=== PATIENT | female | born 1965 | race Caucasian/White ===

== ENCOUNTER 2023-04-04 03:40 | Inpatient (IN) | payer OTHER, SELFPAY ==
[2023-04-04] VITALS (18 sets, daily range): BP systolic 115–157; BP diastolic 71–90; BMI 30.5; BMI 28.7
[2023-04-04 01:20] LABS: % Basophils 0.7 % (0-2); % Eosinophils 2.8 % (0-6); % Immature Granulocytes 0.5 % (0-0.5); % Lymphocytes 23.2 % (20.5-51.1); % Monocytes 6.1 % (1.7-9.3); % Neutrophils 66.7 % (42.2-75.2); Absolute Eosinophils 0.1 10^3/uL (0-0.7); Absolute Monocytes 0.3 10^3/uL (0.1-0.6); Absolute Neutrophils 2.8 10^3/uL (1.4-6.5); Mean Corp Hgb Conc. 25.4 g/dL (33.0-37.0); Mean Corpuscular Hgb 13.9 pg (27.0-31.0); Nucleated Red Blood Cells % 0 %; Platelet Count 211 10^3/uL (130-400); Red Cell Dist. Width 21.5 % (11.5-14.5); White Blood Cell Count 4.3 10^3/uL (4.8-10.8)
[2023-04-04 01:22] LABS: Hematocrit 20.9 % (37.0-47.0); Hemoglobin 5.3 g/dL (12.0-16.0)
[2023-04-04 01:33] LABS: ALT (SGPT) 16 U/L (0-35); AST (SGOT) 44 U/L (14-36); Albumin 3.9 g/dl (3.5-5.0); Alkaline Phosphatase 60 U/L (38-126); Blood Urea Nitrogen 15 mg/dl (7-17); Calcium 9.2 mg/dl (8.4-10.2); Carbon Dioxide 24 mmol/L (22-30); Chloride 105 mmol/L (98-107); Glucose 92 mg/dl (70-99); Potassium 3.7 mmol/L (3.5-5.1); Sodium 139 mmol/L (135-145); Total Protein 5.9 g/dl (6.3-8.2); eGFR > 60.00
--- NOTE | 2023-04-04 01:34 | ED.GENMED ---
History of Present Illness
General
Chief Complaint: Abnormal Lab Value
Source: patient
Exam Limitations: none
Time Seen by Provider: 04/04/23 01:03
Travel History
Have you had any contact with someone who has COVID-19?: No
Do you have any symptoms of coronavirus? Fever > 100 degrees, chills, cough, shortness of breath, sore throat, loss of taste or smell, muscle aches, or headache?: No
History of Present Illness
History of Present Illness:
This is a 57 year old female that comes in with c/o abnormal labs. States that she had some routine blood work done today for her PCP. States that she was called tonight and told to come to the ER as her Hgb was 5.1. States that she hasn't been
feeling well lately. States that she has been dizzy for a year. States that she is SOB occasionally and that she has had some diarrhea with dark stool for a week. States that she was taking Pepto but none recently. States that she also has a
headache. Denies any fever, chills, chest pain, abd pain, nausea, vomiting, dizziness, urinary burning.
Past History
Past History
ED Past Medical History: GERD, HTN, Hypercholesterolemia, Hypothyroidism and Other (Hiatal hernia, )
ED Past Surgical History: , Orthopedic (Carpal tunnel) and Other (Lower body lift on 12/22/18, Breast augmentation. )
Social History
Tobacco: Smoker (Occasional cigar)
Alcohol: None
Drug: Marijuana
Personal:
Living: with family
Review of Systems
Review of Systems
All Other Systems: ROS reviewed and negative except as documented in HPI and ROS
Constitutional: Reports no symptoms; Denies fever or chills
EENT: Reports no symptoms
Respiratory: Reports trouble breathing (occasional); Denies cough
Cardiac: Reports no symptoms; Denies chest pain
ABD/GI: Reports diarrhea and other (Dark stool this past week); Denies abdominal pain, nausea or vomiting
: Reports no symptoms; Denies dysuria, frequency or urgency
Musculoskeletal: Reports no symptoms
Skin: Reports no symptoms
Neurological: Reports dizzy (on and off for over a year) and headache
Psychiatric: Reports no symptoms
Phy Exam
General Physical Exam
General Presentation: well appearing and no apparent distress
General age: appears stated age
General Skin: warm and dry
General Habitus: normal
General Mental: alert
General Hydration: appears well hydrated
ENT Exam
ENT Exam: TM's normal, pharynx normal and neck supple
Eye Exam
Eye Exam: EOMI
Cardiovascular Exam
Cardiovascular Exam: regular rate/rhythm, no edema, no murmur and normal peripheral pulses
Pulmonary Exam
Pulmonary Exam: lungs clear, no respiratory distress, no rales, chest non tender, no crackles, no rhonchi, no wheezing and no cough
Gastrointestinal Exam
Gastrointestinal Exam: normal bowel sounds, non tender, soft, no organomegaly, no pulsatile mass, non distended and other (Rectal exam Negative for stool in the rectal vault, Hem negative. )
Musculoskeletal Exam
Musculoskeletal Exam: full ROM and no edema
Skin Exam
Skin Exam: normal color, warm/dry, no rash and no petechia
Psychiatric Exam
Psychiatric Exam: normal mood/affect
Course
Orders/Labs/Results
Orders:
Orders
04/04/23 01:08
Type+Screen Urgent
Complete Blood Count/With Diff Urgent
Comprehensive Metabolic Panel Urgent
Abnormal Lab Results
04/04/23
01:08
WBC 4.3 L 10^3/uL
(4.8-10.8)
RBC 3.80 L 10^6/uL
(4.20-5.40)
Hgb 5.3 L* g/dL
(12.0-16.0)
Hct 20.9 L* %
(37.0-47.0)
MCV 55.0 L fL
(81.0-99.0)
MCH 13.9 L pg
(27.0-31.0)
MCHC 25.4 L g/dL
(33.0-37.0)
RDW 21.5 H %
(11.5-14.5)
AST 44 H U/L
(14-36)
Total Protein 5.9 L g/dl
(6.3-8.2)
04/04/23 01:08
04/04/23 01:08
WBC very slightly low. H/H very low Anemia, ASt mildly elevated. Total protein low
Vital Signs
Initial and Last Documented VS:
Initial Vital Signs
Temp Pulse Resp BP Pulse Ox
98.4 F 104 18 157/90 100
04/04/23 00:08 04/04/23 00:08 04/04/23 00:08 04/04/23 00:08 04/04/23 00:08
Last Documented Vital Signs
Temp Pulse Resp BP Pulse Ox
98.4 F 96 22 128/87 100
04/04/23 00:08 04/04/23 01:17 04/04/23 01:17 04/04/23 01:17 04/04/23 00:08
MDM/Problems Addressed
Differential Diagnosis Includes:
Anemia, GI bleeding,
MDM/Problems Addressed:
This is a 57 year old female that comes in with c/o abnormal labs. Staes that she has routine blood work done today for her PCP and she was called aura and told to come to the ER. States that her Hgb was 5.1. States that she has had some SOB and
over the past year dizziness.
Will get labs.
Back into see patient. Explained that her Hgb is very low and she will need blood. Blood constent signed and PRBC's 2 units ordered. Hospitalist notified about admission.
Chronic conditions affecting care:
NA
Acute Exacerbation and/or Progression of Chronic Illness:
NA
*Pulse Oximetry
Patient hypoxic: no
*EKG
Interpreted by ED Provider?: NA
Rate: EKG- N/A
*Kerfer Machine Operator Interpretation
Rate: normal
Heart Rate: 96
Rhythm: sinus
*Critical Care Note
Total Time (30-74mins, 75-104mins- exclusive of procedures): Not Applicable
ED Attending Note
-
Portions of this chart may have been created with voice recognition software.� Occasional wrong word or��sound alike� substitutions may have occurred due to the inherent limitations of voice recognition software.
Discharge Plan
Departure
Prescriptions:
No Action
valacyclovir 500 MG tablet
500 mg PO HS
spironolactone 25 MG tablet
25 mg PO HS
simvastatin 5 MG tablet
5 mg PO HS
levothyroxine 50 MCG tablet
50 mcg PO DAILY
ramipril 2.5 MG capsule
2.5 mg PO HS
bupropion HCl 150 MG tablet extended release 24 hr
450 mg PO DAILY
temazepam 15 MG capsule
30 mg PO HS
celecoxib 200 MG capsule
200 mg PO BID 0RF
gabapentin 300 MG capsule
300 mg PO TID 0RF
oxycodone 5 MG tablet
5 mg PO Q4HPRN PRN (Reason: breakthrough mod-severe pain) 0RF
ascorbic acid (vitamin C) [Vitamin C] 500 MG tablet
1,000 mg PO BID Qty: 56 0RF
Rx Instructions:
Take 1,000 mg twice a day for 14 days
albuterol sulfate 1 PUFF HFA aerosol inhaler
2 puff inhalation R Q4HPRN PRN (Reason: shortness of breath) Qty: 1 0RF
zinc sulfate 220 MG capsule
220 mg PO DAILY Qty: 14 0RF
Rx Instructions:
Take 220 mg daily for 14 days
cholecalciferol (vitamin D3) 1,000 UNITS tablet
2,000 units PO DAILY Qty: 28 0RF
Rx Instructions:
Take 2,000 units daily for 14 days
Referrals:
Bryn Zayas DO [Family Provider] -
Interventions
Interventions:
*Neglect/Abuse Screening Last Done: 04/04/23 01:01
ED- Fall Risk Assessment Last Done: 04/04/23 01:20
*ED COVID-19 Vaccine History Last Done: 04/04/23 01:13
[2023-04-04 02:32] LABS: Anisocytosis 2+; Hypersegmented Neutrophil 1+; Normal RBC Morphology No; Ovalocytes 2+; Poikilocytosis 2+; Target Cells 2+
[2023-04-04 02:33] LABS: Acanthocytes 1+; Hypochromasia 3+; Tear Drop Red Blood Cells 1+
[2023-04-04 02:34] LABS: Basophilic Stippling Occasional; Polychromasia Occasional
[2023-04-04 02:38] LABS: Rouleaux Occasional
[2023-04-04 02:41] LABS: Microcytosis 2+
--- NOTE | 2023-04-04 02:46 | HPS.HSE ---
Addendum entered and electronically signed by Coral Carlin MD 04/04/23 03:58:
patient states she is likely due for colonoscopy. she also reports intermittent esophageal spasm when eating.
Original Note:
Family Physician
-
Family Physician: Bryn Zayas
Chief Complaint
-
abnormal blood work
History of Present Illness
Ms. Jordana Kramer is a 57 yo woman with hx GERD, HTN, HLD, hypothyroidism who had outpatient blood work done with finding of severe anemia and sent to the ER.
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 She is on human growth hormone twice a day. She was on testosterone, stopped after last tournament in October. One year ago she needed to undergo phlebotomy because hemoglobin was too high. Patient was
also on fat metabolizers and other supplements. She reports feeling dizzy and lightheaded over past year with worsening over past 6 months. She saw PCP for routine labs today. She reports black stools over past 2 weeks, has also started taking
pepto bismol around this time. Denies increased frequency.
No fevers/chills. No nausea/vomiting. No abdominal pain. + shortness of breath with exertion. No chest pain.
Medical History
Past Medical History
Past Medical History: Reports Other ( GERD, HTN, HLD, hypothyroidism)
Past Surgical History: Reports Other ( , Orthopedic (Carpal tunnel) and Other (Lower body lift on 12/22/18, Breast augmentation. ))
Social History
Tobacco: Smoker (cigar)
Alcohol: None
Family History
Family History: Not pertinent
Allergies / Home Medications
Allergies reflects when Allergies were last updated in [facility].
Home Medications with original date entered in [facility]
Allergy/Medication List:
Allergies
Allergy/AdvReac Type Severity Reaction Status Date / Time
Cephalosporins Allergy Pharmacy Verified 04/04/23 00:07
to Review
penicillin V Allergy throat Verified 04/04/23 00:07
swells
Penicillins Allergy throat Verified 04/04/23 00:07
swells
rabbit dander Allergy throat Verified 04/04/23 00:07
swells
Home Medications
levothyroxine 50 mcg tablet 50 mcg PO DAILY 12/05/18
ramipril 2.5 mg capsule 2.5 mg PO HS 12/05/18
simvastatin 5 mg tablet 5 mg PO HS 12/05/18
spironolactone 25 mg tablet 25 mg PO HS 12/05/18
temazepam 15 mg capsule 30 mg PO HS 12/05/18
valacyclovir 500 mg tablet 500 mg PO HS 12/05/18
gabapentin 300 mg capsule 300 mg PO TID 12/22/18
oxycodone 5 mg tablet 5 mg PO Q4HPRN PRN breakthrough mod-severe pain 12/22/18
albuterol sulfate 90 mcg/actuation aerosol inhaler 2 puff inhalation R Q4HPRN PRN shortness of breath ##1 12/01/20
ascorbic acid (vitamin C) 500 mg tablet (Vitamin C) 1,000 mg PO BID #56 tabs 12/01/20
cholecalciferol (vitamin D3) 25 mcg (1,000 unit) tablet 2,000 units PO DAILY #28 tabs 12/01/20
zinc sulfate 50 mg zinc (220 mg) capsule 220 mg PO DAILY #14 caps 12/01/20
*awaiting med rec
Review of Systems
-
History Source: Patient
A 12 point ROS was completed and negative except as noted: Yes
Physical Exam
Vital Signs
Vital Signs
Temp Pulse Resp BP Pulse Ox
98.4 F 88 13 132/83 96
04/04/23 02:25 04/04/23 02:30 04/04/23 02:30 04/04/23 02:25 04/04/23 02:30
Physical Exam
General: Conversant and Other (no apparent distress, increased muscle mass )
HEENT: PERRLA
Respiratory: Clear; No Wheezes
Cardiac: S1/S2 and Regular Rhythm
GI: Soft and Non Tender
Musculoskeletal: No Edema
Skin: Warm and Dry; No Rash
Neuro: AO x 3
Psych: Calm
Laboratory Results
-
04/04/23 01:08
04/04/23 01:08
Laboratory Results
Total Bilirubin 1.0 mg/dl (0.2-1.3) 04/04/23 01:08
AST 44 U/L (14-36) H 04/04/23 01:08
ALT 16 U/L (0-35) 04/04/23 01:08
Alkaline Phosphatase 60 U/L (38-126) 04/04/23 01:08
Data Reviewed
-
Diagnostic Radiology: Report Reviewed by me
Lab Data: Labs Reviewed by me
Impression/Plan
-
Ms. Jordana Kramer is a 57 yo woman with hx GERD, HTN, HLD, hypothyroidism who had outpatient blood work done with finding of severe anemia and sent to the ER.
Triage VS: T 98.4, P 104, RR 18, BP 157/90, SpO2 100%
LABS: WBC 4.3, Hg 5.3, Hct 20.9, PLT 211, MCV 55; differential with multiple abnormalities including + rouleaux, tear drop cells, basophilic stippling
Na 139, K+ 3.7, Cl 105, BUN 15, Cr 0.7, Glucose 92, T. Bili 1.0, AST 44, ALT 16, Alk Phos 60
ordered for 2 units PRBC
Symptomatic Anemia
severe microcytic anemia with abnl diff
-admit to telemetry
-ordered for 2 units RBC in ER; repeat CBC following
-trend Hg
-consult Hematology
-F/U iron studies (if e/o TAZ also consult GI)
-hold supplements (awaiting med rec)
GERD
HTN
HLD
Hypothyroidism
awaiting med rec to continue home med list
DVT PPx SCD
FULL CODE
[2023-04-04 03:37] LABS: Iron < 20 ug/dl (37-170)
[2023-04-04 03:45] LABS: Total Iron Binding Capacity 469 ug/dl (265-497)
[2023-04-04 04:17] LABS: Ferritin 3.8 ng/ml (11.1-264.0)
[2023-04-04 04:31] LABS: Vitamin B12 468 pg/ml (239-931)
--- NOTE | 2023-04-04 06:06 | PTCARENOTE ---
Pt received from ER aaox3 able to make her needs known,pleasant,cooperative. Denies pain. Pt received from ER with 1st unit of blood running & 2nd unit is ordered. No other complaints noted. Plan of care continued.
[2023-04-04] MEDS: LYRICA 150 MG PO ×2 (08:40→20:52)
[2023-04-04] MEDS: VITAMIN C 1000 MG PO (08:40)
[2023-04-04] MEDS: VITAMIN D3 (cholecalciferol) 50 MCG PO (08:40)
--- NOTE | 2023-04-04 09:20 | CON.ONC ---
Impression
Impression
Severe symptomatic iron deficiency anemia
Plan
Plan
Patient was scheduled and has received 2 units of packed RBCs. She is currently receiving transfusions at this time. Await follow-up CBC.
She requires a GI consultation for upper and lower endoscopy to evaluate the source of blood loss.
In addition to PRBC x 2 units which has been ordered, I will arrange for IV iron.
We will standby to see if there is anything oncologic that is discovered as part of the GI evaluation otherwise both transfusion and IV iron therapy should effectively improve her iron and hemoglobin relatively quickly.
Thank you for this consult.
Patient History
History of Present Illness
Hematology consult for anemia from Dr. Carlin
CC: Fatigue and slight loss of stamina
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 She has history of polycythemia (suspect secondary to significant hormone supplementation such as testosterone) and
actually underwent some phlebotomies through [facility] coordinated through her PCP Dr. Bryn Zayas. She also takes human growth ointment twice a day. She had complaints of dizziness and lightheadedness over the past year that has become
progressive over the past 6 months. She has a new bodybuilding coach tour driver who recommended blood work that was done to her PCP. She has noted intermittent dark stools but attributes it to Pepto-Bismol that she is taking for upper GI symptoms such as
reflux and esophageal spasms. She has never had a colonoscopy. She does have dyspnea with exertion. No other obvious sites of bleeding. Patient has not had menses for approximately 7 years.
Past-Medical/Surgical History
PMH: GERD, HTN, HLD, hypothyroidism
PSH: , Orthopedic (Carpal tunnel) and Lower body lift on 12/22/18, Breast augmentation.
Social History
Tobacco: Smoker (cigar)
Alcohol: None
Family History
Family History: Not pertinent
Patient Medication
Medication Instructions Recorded Confirmed Last Taken Type
valacyclovir 500 mg tablet 500 mg PO HS 12/05/18 04/04/23 12/21/18 17:30 History
albuterol sulfate 90 mcg/actuation 2 puff inhalation R Q4HPRN PRN 12/01/20 04/04/23 Unknown Rx
aerosol inhaler shortness of breath ##1
ascorbic acid (vitamin C) 500 mg 1,000 mg PO BID #56 tabs 12/01/20 04/04/23 Unknown Rx
tablet (Vitamin C)
cholecalciferol (vitamin D3) 25 2,000 units PO DAILY #28 tabs 12/01/20 04/04/23 Unknown Rx
mcg (1,000 unit) tablet
dextroamphetamine-amphetamine 10 10 mg PO BID 04/04/23 04/04/23 Unknown History
mg tablet
gabapentin 300 mg capsule 150 mg PO BID 04/04/23 Unknown History
Active Medications
Generic Name Dose Route Start Last Admin
Trade Name Freq PRN Reason Stop Dose Admin
Acetaminophen 650 mg 04/04/23 04:57
Acetaminophen 325 Mg Tablet PO 05/02/23 04:56
Q4HPRN PRN
mild pain/ULRICH/temp> 100.4F
Ascorbic Acid 1,000 mg 04/04/23 08:00 04/04/23 08:40
Ascorbic Acid 500 Mg Tablet PO 04/17/23 20:01 1,000 mg
BID CHEMO Administration
Cholecalciferol 50 mcg 04/04/23 08:00 04/04/23 08:40
Cholecalciferol (Vitamin D3) 25 Mcg Tablet (1,000 Units) PO 04/17/23 08:01 50 mcg
DAILY CHEMO Administration
Ferric Sodium Gluconate 110 mls @ 110 mls/hr 04/04/23 14:00
Complex 125 mg/ Sodium IV 04/08/23 14:59
Chloride DAILY@1400 CHEMO
Pregabalin 150 mg 04/04/23 08:00 04/04/23 08:40
Pregabalin 50 Mg Capsule PO 05/02/23 07:59 150 mg
BID CHEMO Administration
Sodium Chloride 0 flush 04/04/23 06:00
Sodium Chloride 0.9% (Flush) Syringe IV 05/02/23 05:59
PER PROTOCOL CHEMO
Valacyclovir HCl 500 mg 04/04/23 22:00
Valacyclovir Hcl 500 Mg Tablet PO 04/14/23 21:59
HS CHEMO
Physical Exam
-
General: Well Developed, Well Nourished and No Apparent Distress
HEENT: Negative Jaundice
Cardiology: Normal Sinus Rhythm, S1 and S2
Pulmonary: Clear
GI: Soft
Musculoskeletal: No Edema, Clubbing and Cyanosis
Neurology: Non Focal
Labs
Lab Results
WBC 4.3 10^3/uL (4.8-10.8) L 04/04/23 01:08
RBC 3.80 10^6/uL (4.20-5.40) L 04/04/23 01:08
Hgb 5.3 g/dL (12.0-16.0) L* 04/04/23 01:08
Hct 20.9 % (37.0-47.0) L* 04/04/23 01:08
MCV 55.0 fL (81.0-99.0) L 04/04/23 01:08
MCH 13.9 pg (27.0-31.0) L 04/04/23 01:08
MCHC 25.4 g/dL (33.0-37.0) L 04/04/23 01:08
RDW 21.5 % (11.5-14.5) H 04/04/23 01:08
Plt Count 211 10^3/uL (130-400) 04/04/23 01:08
MPV Not Reportable 04/04/23 01:08
Abs Immat Gran (auto) 0.0 10^3/uL (0-0.05) 04/04/23 01:08
Absolute Neuts (auto) 2.8 10^3/uL (1.4-6.5) 04/04/23 01:08
Absolute Lymphs (auto) 1.0 10^3/uL (1.2-3.4) L 04/04/23 01:08
Absolute Monos (auto) 0.3 10^3/uL (0.1-0.6) 04/04/23 01:08
Absolute Eos (auto) 0.1 10^3/uL (0-0.7) 04/04/23 01:08
Absolute Basos (auto) 0.0 10^3/uL (0-0.2) 04/04/23 01:08
Immature Gran % 0.5 % (0-0.5) 04/04/23 01:08
Neutrophils % 66.7 % (42.2-75.2) 04/04/23 01:08
Lymphocytes % 23.2 % (20.5-51.1) 04/04/23 01:08
Monocytes % 6.1 % (1.7-9.3) 04/04/23 01:08
Eosinophils % 2.8 % (0-6) 04/04/23 01:08
Basophils % 0.7 % (0-2) 04/04/23 01:08
Creatinine 0.7 mg/dL (0.6-1.0) 04/04/23 01:08
Vital Signs
Vital Signs
Temp Pulse Resp BP Pulse Ox
98.2 F 76 16 115/78 98
04/04/23 07:00 04/04/23 07:00 04/04/23 07:00 04/04/23 07:00 04/04/23 07:00
--- NOTE | 2023-04-04 10:14 | CM ---
Met with patient at bedside; initial assessment completed
Pharmacy verified: [facility], [address], [place]
Patient reports that she lives in [facility] with daughter and daughter's boyfriend; 2 steps to enter; 14 steps between floors; powder room on the 1st floor; 2nd floor bath has a stall shower with seat
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
DME: none
SNF/Rehab/Home Care utilization history: none
Transportation; Significant other, Jeremy, will provide ride home
Plan: discharge to home when medically stable; no needs anticipated
[2023-04-04 11:26] LABS: Hematocrit 27.8 % (37.0-47.0); Mean Corp Hgb Conc. 27.7 g/dL (33.0-37.0); Mean Corpuscular Hgb 16.4 pg (27.0-31.0); Mean Corpuscular Volume 59.3 fL (81.0-99.0); Red Blood Cell Count 4.69 10^6/uL (4.20-5.40); Red Cell Dist. Width 26.7 % (11.5-14.5); White Blood Cell Count 4.3 10^3/uL (4.8-10.8)
[2023-04-04 11:35] LABS: Hemoglobin 7.7 g/dL (12.0-16.0)
[2023-04-04 12:05] LABS: Blood Urea Nitrogen 10 mg/dl (7-17); Calcium 8.8 mg/dl (8.4-10.2); Carbon Dioxide 28 mmol/L (22-30); Chloride 106 mmol/L (98-107); Estimated Creatinine Clearance 86 ml/min; Glucose 72 mg/dl (70-99); Potassium 3.8 mmol/L (3.5-5.1); Sodium 136 mmol/L (135-145); eGFR > 60.00
[2023-04-04 12:24] LABS: Platelet Count 188 10^3/uL (130-400)
[2023-04-04 12:35] LABS: TSH 2.31 uIU/ml (0.47-4.68)
--- NOTE | 2023-04-04 14:28 | W.PN.HOSP.TC ---
Today's Communication/Plan
-
IV iron
Endo +/- C-Scope as per GI
Monitor HgB
Assessment / Plan
Assessment / Plan
Physical Exam
General: Conversant and Other (no apparent distress, increased muscle mass )
HEENT: PERRLA
Respiratory: Clear; No Wheezes
Cardiac: S1/S2 and Regular Rhythm
GI: Soft and Non Tender
Musculoskeletal: No Edema
Skin: Warm and Dry; No Rash
Neuro: AO x 3
Psych: Calm
Symptomatic Anemia
severe microcytic anemia with abnl diff
Iron deficiency anemia
-admit to telemetry
-ordered for 2 units RBC in ER
-trend Hgb; transfuse as necessary to ensure hemoglobin goal greater than 7
� IV iron
� GI consulted for endoscopy +/- colonoscopy
GERD
HTN
HLD
Hypothyroidism
DVT PPx SCD
FULL CODE
Anticipated Discharge: > 48 hours
Subjective/Interval History
-
Date of Service: April 04, 2023
no acute events
Objective Data
-
Labs:
Laboratory Results
04/04/23
11:17
WBC 4.3 L
Hgb 7.7 L D
Hct 27.8 L
Plt Count 188
Sodium 136
Potassium 3.8
Chloride 106
Carbon Dioxide 28
BUN 10
Creatinine 0.7
Glucose 72
Calcium 8.8
Vital Signs:
Vital Signs
Temp Pulse Resp BP Pulse Ox
98.5 F 77 18 122/76 97
04/04/23 11:17 04/04/23 11:17 04/04/23 11:17 04/04/23 11:17 04/04/23 11:17
I&O
04/03/23 04/04/23 04/05/23
06:59 06:59 06:59
Intake Total 730 / 730 250 / 250
Balance 730 / 730 250 / 250
Review of Systems
-
History Source: Patient
All other systems: Not reviewed unless documented
Data Reviewed
-
Labs: Labs Reviewed by me
[2023-04-04] MEDS: FERRLECIT 110 MG IV (14:33)
--- NOTE | 2023-04-04 15:35 | CON.GI ---
Consultation
-
Date/Time Consultation Requested: 04/04/2022
Date/Time Consultation Performed: 04/04/2022
Performing Provider: Nikhil Reeder
Reason for Consultation: anemia
Medical History
Chief Complaint / HPI
Chief Complaint: anemia
History of Present Illness:
The patient is a 57 year old female with h/o GERD, HTN, HLD, hypothyroidism who was sent in from outpatient blood work which showed severe anemia. Hgb here was 5.3.
Impression / Rec:
1. TAZ - etiology is unclear. Pt reported melena for few weeks, but states she had been taking pepto-bismol during this period. She also has NSAID use, ibuprofen few times a week. Never had EGD/colon. MAIDA in ER showed minimal stool in rectal
vault, heme -ve. Will plan for EGD tomorrow, NPO midnight. Colonoscopy can be done as OP as little suspicion she's actually having GI blood loss. Will follow.
Past Medical History
Past Medical History: GERD, HTN, Hypothyroidism and Other
Past Surgical History: and Other
Social History
Tobacco: Other
Alcohol: None
Family History
Family History: Reviewed & Not Pertinent
Allergies / Home Medications
Allergy/AdvReac Type Severity Reaction Status Date / Time
Cephalosporins Allergy Pharmacy Verified 04/04/23 00:07
to Review
penicillin V Allergy throat Verified 04/04/23 00:07
swells
Penicillins Allergy throat Verified 04/04/23 00:07
swells
rabbit dander Allergy throat Verified 04/04/23 00:07
swells
Medication Instructions Recorded
valacyclovir 500 mg tablet 500 mg PO HS 12/05/18
albuterol sulfate 90 mcg/actuation 2 puff inhalation R Q4HPRN PRN 12/01/20
aerosol inhaler shortness of breath ##1
ascorbic acid (vitamin C) 500 mg 1,000 mg PO BID #56 tabs 12/01/20
tablet (Vitamin C)
cholecalciferol (vitamin D3) 25 2,000 units PO DAILY #28 tabs 12/01/20
mcg (1,000 unit) tablet
dextroamphetamine-amphetamine 10 10 mg PO BID 04/04/23
mg tablet
gabapentin 300 mg capsule 150 mg PO BID 04/04/23
Review of Systems
Vital Signs
Temp Pulse Resp BP Pulse Ox
97.7 F 75 18 139/85 100
04/04/23 15:24 04/04/23 15:24 04/04/23 15:24 04/04/23 15:24 04/04/23 15:24
Physical Exam
Exam
General: Well Developed, Well Nourished and No Apparent Distress
HEENT: Normocephalic and Anicteric
Respiratory: Clear
Cardiac: S1/S2
GI: Soft, Non Tender, Non Distended and Normal Bowel Sounds
Results
WBC 4.3 10^3/uL (4.8-10.8) L 04/04/23 11:17
Hgb 7.7 g/dL (12.0-16.0) L D 04/04/23 11:17
Hct 27.8 % (37.0-47.0) L 04/04/23 11:17
MCV 59.3 fL (81.0-99.0) L 04/04/23 11:17
Plt Count 188 10^3/uL (130-400) 04/04/23 11:17
Absolute Neuts (auto) 2.8 10^3/uL (1.4-6.5) 04/04/23 01:08
Sodium 136 mmol/L (135-145) 04/04/23 11:17
Potassium 3.8 mmol/L (3.5-5.1) 04/04/23 11:17
Chloride 106 mmol/L (98-107) 04/04/23 11:17
Carbon Dioxide 28 mmol/L (22-30) 04/04/23 11:17
BUN 10 mg/dl (7-17) 04/04/23 11:17
Creatinine 0.7 mg/dL (0.6-1.0) 04/04/23 11:17
Calcium 8.8 mg/dl (8.4-10.2) 04/04/23 11:17
Total Bilirubin 1.0 mg/dl (0.2-1.3) 04/04/23 01:08
AST 44 U/L (14-36) H 04/04/23 01:08
ALT 16 U/L (0-35) 04/04/23 01:08
Alkaline Phosphatase 60 U/L (38-126) 04/04/23 01:08
Diagnostic Image Results:
Prior GI Procedures:
EGD:
Colonoscopy:
Assessment / Plan
-
The patient is a 57 year old female with h/o GERD, HTN, HLD, hypothyroidism who was sent in from outpatient blood work which showed severe anemia. Hgb here was 5.3.
Impression / Rec:
1. TAZ - etiology is unclear. Pt reported melena for few weeks, but states she had been taking pepto-bismol during this period. She also has NSAID use, ibuprofen few times a week. Never had EGD/colon. MAIDA in ER showed minimal stool in rectal
vault, heme -ve. Will plan for EGD tomorrow, NPO midnight. Colonoscopy can be done as OP as little suspicion she's actually having GI blood loss. Will follow.
Total Time Spent with Patient (in minutes): 55
-
-
Thank you for consultation and allowing me to participate in the patient's care. Please call the cert occupational therapy asst GI physician during the after hours with any questions or concerns.
[2023-04-04] MEDS: VITAMIN C PO (20:52)
[2023-04-04] MEDS: NSS (PRESERVATIVE FREE) 10 ML IV (20:58)
[2023-04-04] MEDS: PROTONIX IV 40 MG IV (20:59)
[2023-04-04] MEDS: ATIVAN 0.5 MG PO (21:59)
[2023-04-04] MEDS: VALTREX 500 MG PO (22:00)
[2023-04-05] VITALS (8 sets, daily range): BP systolic 15–136; BP diastolic 62–77
[2023-04-05] MEDS: LYRICA 150 MG PO (08:14)
[2023-04-05] MEDS: VITAMIN D3 (cholecalciferol) 50 MCG PO (08:14)
[2023-04-05] MEDS: PROTONIX IV 40 MG IV (08:14)
[2023-04-05] MEDS: VITAMIN C 1000 MG PO (08:14)
[2023-04-05] MEDS: NSS (PRESERVATIVE FREE) 10 ML IV (08:15)
[2023-04-05 08:29] LABS: Hematocrit 29.4 % (37.0-47.0); Hemoglobin 7.9 g/dL (12.0-16.0); Mean Corp Hgb Conc. 26.9 g/dL (33.0-37.0); Mean Corpuscular Hgb 16.3 pg (27.0-31.0); Mean Corpuscular Volume 60.7 fL (81.0-99.0); Red Blood Cell Count 4.84 10^6/uL (4.20-5.40); Red Cell Dist. Width 26.5 % (11.5-14.5); White Blood Cell Count 4.2 10^3/uL (4.8-10.8)
[2023-04-05 09:12] LABS: ALT (SGPT) 15 U/L (0-35); AST (SGOT) 27 U/L (14-36); Albumin 3.9 g/dl (3.5-5.0); Alkaline Phosphatase 72 U/L (38-126); Blood Urea Nitrogen 6 mg/dl (7-17); Carbon Dioxide 28 mmol/L (22-30); Chloride 106 mmol/L (98-107); Estimated Creatinine Clearance 67 ml/min; Glucose 79 mg/dl (70-99); Magnesium 2.2 mg/dl (1.6-2.3); Phosphorus 4.4 mg/dl (2.5-4.5); Potassium 3.9 mmol/L (3.5-5.1); Sodium 138 mmol/L (135-145); Total Bilirubin 1.8 mg/dl (0.2-1.3); Total Protein 5.8 g/dl (6.3-8.2); eGFR > 60.00
[2023-04-05 09:27] LABS: Platelet Count 188 10^3/uL (130-400)
[2023-04-05 10:32] LABS: Direct Bilirubin 0.3 mg/dl (0.0-0.4)
[2023-04-05] MEDS: CARAFATE SUSPENSION 1 GM PO (11:39)
[2023-04-05 12:45] LABS: Hemoglobin 7.8 g/dL (12.0-16.0)
[2023-04-05] MEDS: FERRLECIT 110 MG IV (13:50)
--- NOTE | 2023-04-05 14:07 | W.PN.HOSP.TC ---
Addendum entered and electronically signed by Cheng Webb MD 04/06/23 15:42:
[id number]
Original Note:
Today's Communication/Plan
-
-Endo:�Esophageal ulcers with no bleeding and no stigmata of recent bleeding.
Resume regular diet. Should chew food carefully, avoid steak, encased sausages, foods that can get stuck.
-Start protonix 40 mg� before breakfast, 40 mg before dinner - should remain� on PPI BID until repeat EGD.
-Carafate before lunch and� at bedtime for 2 weeks.
�- Await pathology results.
- Repeat upper endoscopy in 8 weeks to check healing.
-� May need dilation as well.
� - Perform a colonoscopy at appointment to be �scheduled.�
-CBC on saturday 04/08
-Repeat Hb/iron studies in 1 week�
-Ferrous sulfate daily on dc
Assessment / Plan
Assessment / Plan
Physical Exam
General: Conversant and Other (no apparent distress, increased muscle mass )
HEENT: PERRLA
Respiratory: Clear; No Wheezes
Cardiac: S1/S2 and Regular Rhythm
GI: Soft and Non Tender
Musculoskeletal: No Edema
Skin: Warm and Dry; No Rash
Neuro: AO x 3
Psych: Calm
Symptomatic Anemia
severe microcytic anemia with abnl diff
Iron deficiency anemia
-admit to telemetry
-s/p 2 units RBC in
- IV iron
� GI consulted for endoscopy
-Endo:�Esophageal ulcers with no bleeding and no stigmata of recent bleeding.
Resume regular diet. Should chew food carefully, avoid steak, encased sausages, foods that can get stuck.
-Start protonix 40 mg� before breakfast, 40 mg before dinner - should remain� on PPI BID until repeat EGD.
-Carafate before lunch and� at bedtime for 2 weeks.
�- Await pathology results.
- Repeat upper endoscopy in 8 weeks to check healing.
-� May need dilation as well.
� - Perform a colonoscopy at appointment to be �scheduled.�
-CBC on saturday 04/08
-Repeat Hb/iron studies in 1 week�
-Ferrous sulfate daily on dc
GERD
HTN
HLD
Hypothyroidism
DVT PPx SCD
FULL CODE
More than 30 minutes spent in discharge including
Final examination of the patient
Summarizing hospital stay
Instructions for continuing care to all relevant caregivers
Preparation of discharge records, prescriptions, and referral forms
Total time spent (35 in minutes):
Anticipated Discharge: Today
Subjective/Interval History
-
Date of Service: April 05, 2023
Endoscopy today, appropriately responded to transfusions
Objective Data
-
Labs:
Laboratory Results
04/05/23 04/05/23
07:05 11:38
WBC 4.2 L
Hgb 7.9 L 7.8 L
Hct 29.4 L
Plt Count 188
Sodium 138
Potassium 3.9
Chloride 106
Carbon Dioxide 28
BUN 6 L
Creatinine 0.9
Glucose 79
Calcium 9.0
Total Bilirubin 1.8 H
AST 27
ALT 15
Alkaline Phosphatase 72
Vital Signs:
Vital Signs
Temp Pulse Resp BP Pulse Ox
98.3 F 89 16 124/73 97
04/05/23 13:55 04/05/23 13:55 04/05/23 13:55 04/05/23 13:55 04/05/23 13:55
I&O
04/04/23 04/05/23 04/06/23
06:59 06:59 06:59
Intake Total 730 / 730 1570 / 1570
Balance 730 / 730 1570 / 1570
Review of Systems
-
History Source: Patient
All other systems: Not reviewed unless documented
Data Reviewed
-
Labs: Labs Reviewed by me
--- NOTE | 2023-04-05 14:10 | W.DS.TRANS ---
DC Summary - Combine Inspector
-
Discharge Instructions:
Discharge Diagnosis/Procedures
Symptomatic Anemia
severe microcytic anemia with abnl diff
Iron deficiency anemia
esophageal ulcers
Additional Diets Resume regular diet. Should chew food carefully,
avoid steak, encased sausages, foods that can
get stuck.
Blood Work cbc on saturday 04/08 with GI
Repeat Hb/iron studies in 1 week outpatient with
GI, PCP
Instructions:
Stand-Alone Forms:
Changes to Home Medications: Yes
Discharge Medications:
DC Medications w/original date entered in [employer]
valacyclovir 500 mg tablet 500 mg PO HS Infection 12/05/18
albuterol sulfate 90 mcg/actuation aerosol inhaler 2 puff inhalation R [id number] PRN shortness of breath ##1 12/01/20
ascorbic acid (vitamin C) 500 mg tablet (Vitamin C) 1,000 mg PO BID #56 tabs 12/01/20
cholecalciferol (vitamin D3) 25 mcg (1,000 unit) tablet 2,000 units PO DAILY #28 tabs 12/01/20
dextroamphetamine-amphetamine 10 mg tablet 10 mg PO BID ADHD 04/04/23
gabapentin 300 mg capsule 150 mg PO BID Neurological Condition 04/04/23
lorazepam 0.5 mg tablet 0.5 mg PO HS PRN anxiety 04/04/23
ferrous sulfate 325 mg (65 mg iron) tablet 325 mg PO DAILY 30 days #30 tabs 04/05/23
pantoprazole 40 mg tablet,delayed release (Protonix) 40 mg PO BID AT 0800,1700 30 days #60 tabs 04/05/23
sucralfate 100 mg/mL oral suspension 1 g (10 mL) PO ACHS 2 weeks #1,000 mL 04/05/23
Home Medication Changes
ferrous sulfate 325 mg (65 mg iron) tablet 325 mg PO DAILY 30 days #30 tabs 04/05/23
pantoprazole 40 mg tablet,delayed release (Protonix) 40 mg PO BID AT 0800,1700 30 days #60 tabs 04/05/23
sucralfate 100 mg/mL oral suspension 1 g (10 mL) PO ACHS 2 weeks #1,000 mL 04/05/23
Pending Results: No
--- NOTE | 2023-04-05 16:49 | CM ---
CM following re: d/c planning
Chart reviewed
Pt is medically stable for d/c
Pt is s/p endoscopy procedure with no complaints offered
Pt to resume regular diet & per GI repeat upper endoscopy in 8weeks
Pt S.O. to transport the patient home at time of d/c
Pt is functionally independent and has no needs
PLAN; d/c home no needs
== END 2023-04-05 17:48 | disposition home or self-care (01) | DRG 812 ==
LOC: 4 EAST ACU 03:40
PROVIDERS: Internal Medicine Gastroenterology; ADMITTING PHYSICIAN Student in an Organized Health Care Education/Training Program; ATTENDING PHYSICIAN Internal Medicine; CONSULT PHYSICIAN Internal Medicine Gastroenterology; CONSULT PHYSICIAN Internal Medicine Hematology & Oncology; EMERGENCY PHYSICIAN Emergency Medicine; FAMILY PHYSICIAN Family Medicine
PROC: 30233N1 Transfusion of Nonautologous Red Blood Cells into Peripheral Vein, Percutaneous Approach (ICD-10-PCS; 2023-04-04)
PROC: 0DB68ZX Excision of Stomach, Via Natural or Artificial Opening Endoscopic, Diagnostic (ICD-10-PCS; 2023-04-05)
PROC: 0DB98ZX Excision of Duodenum, Via Natural or Artificial Opening Endoscopic, Diagnostic (ICD-10-PCS; 2023-04-05)
PROC: 0DB58ZX Excision of Esophagus, Via Natural or Artificial Opening Endoscopic, Diagnostic (ICD-10-PCS; 2023-04-05)
DX: D50.0 Iron deficiency anemia secondary to blood loss (chronic) (principal); K22.10 Ulcer of esophagus without bleeding; K21.9 Gastro-esophageal reflux disease without esophagitis; I10 Essential (primary) hypertension; E78.00 Pure hypercholesterolemia, unspecified; E03.9 Hypothyroidism, unspecified
CPT/HCPCS: 88305; 36430; 80048; 80053; 82248; 82607; 82728; 83540; 83550; 83735; 84100; 84443; 85018; 85025; 85027; 86850; 86900; 86901; 86920; 88342; 99285; 99406; J2916; P9016

== ENCOUNTER → 2023-04-08 13:58 | Outpatient (REF) | payer OTHER, SELFPAY ==
[2023-04-08 15:01] LABS: Hematocrit 29.5 % (37.0-47.0); Hemoglobin 7.9 g/dL (12.0-16.0); Mean Corp Hgb Conc. 26.8 g/dL (33.0-37.0); Mean Corpuscular Hgb 17.1 pg (27.0-31.0); Mean Corpuscular Volume 63.7 fL (81.0-99.0); Red Blood Cell Count 4.63 10^6/uL (4.20-5.40); White Blood Cell Count 5.9 10^3/uL (4.8-10.8)
[2023-04-08 15:31] LABS: Platelet Count 160 10^3/uL (130-400)
== END ==
LOC: RAD 13:58
PROVIDERS: ATTENDING PHYSICIAN Internal Medicine Gastroenterology; FAMILY PHYSICIAN Family Medicine
DX: D50.0 Iron deficiency anemia secondary to blood loss (chronic) (principal); R60.0 Localized edema
CPT/HCPCS: 36415; 85027; 93971

== ENCOUNTER 2023-04-09 15:32 | Emergency (ER) | payer OTHER, SELFPAY ==
[2023-04-09 15:42] VITALS: BP 115/75
[2023-04-09 16:15] LABS: ALT (SGPT) 13 U/L (0-35); AST (SGOT) 29 U/L (14-36); Albumin 4.3 g/dl (3.5-5.0); Alkaline Phosphatase 71 U/L (38-126); Blood Urea Nitrogen 10 mg/dl (7-17); Calcium 8.8 mg/dl (8.4-10.2); Carbon Dioxide 30 mmol/L (22-30); Chloride 104 mmol/L (98-107); Glucose 94 mg/dl (70-99); Potassium 4.2 mmol/L (3.5-5.1); Sodium 137 mmol/L (135-145); Total Bilirubin 1.1 mg/dl (0.2-1.3); Total Protein 6.4 g/dl (6.3-8.2); eGFR > 60.00
[2023-04-09 16:25] LABS: Hematocrit 31.6 % (37.0-47.0); Hemoglobin 8.5 g/dL (12.0-16.0); Mean Corp Hgb Conc. 26.9 g/dL (33.0-37.0); Mean Corpuscular Hgb 17.2 pg (27.0-31.0); Mean Corpuscular Volume 63.8 fL (81.0-99.0); Red Blood Cell Count 4.95 10^6/uL (4.20-5.40); Red Cell Dist. Width 31.3 % (11.5-14.5); White Blood Cell Count 5.7 10^3/uL (4.8-10.8)
[2023-04-09 16:26] LABS: % Basophils 0.7 % (0-2); % Eosinophils 5.3 % (0-6); % Immature Granulocytes 0.5 % (0-0.5); % Lymphocytes 20.7 % (20.5-51.1); % Monocytes 5.8 % (1.7-9.3); Absolute Eosinophils 0.3 10^3/uL (0-0.7); Absolute Lymphocytes 1.2 10^3/uL (1.2-3.4); Absolute Monocytes 0.3 10^3/uL (0.1-0.6); Absolute Neutrophils 3.8 10^3/uL (1.4-6.5); Normal RBC Morphology No; Nucleated Red Blood Cells % 0 %; Platelet Count 154 10^3/uL (130-400)
[2023-04-09 16:28] LABS: Anisocytosis 2+; Hypochromasia 3+; Macrocytosis FEW; Microcytosis 2+; Ovalocytes FEW; Poikilocytosis 1+; Polychromasia Slight; Target Cells FEW
[2023-04-09 16:37] VITALS: BP 112/73
[2023-04-09 17:00] VITALS: BP 119/70
--- NOTE | 2023-04-09 17:11 | PHANOTE ---
04/09/2023, med [employer] tech, spoke to pt. to obtain their med. history; pt. 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 states to get this from her senior trainer. She states that she either
injects in her abdomen or her thighs.
--- NOTE | 2023-04-09 17:46 | ED.GENMED ---
History of Present Illness
General
Chief Complaint: DVT/Possible Blood Clot
Source: patient
Exam Limitations: none
Time Seen by Provider: 04/09/23 17:45
Nursing documentation reviewed up to this point in time: agreed with except (pt)
Travel History
Have you had any contact with someone who has COVID-19?: No
Do you have any symptoms of coronavirus? Fever > 100 degrees, chills, cough, shortness of breath, sore throat, loss of taste or smell, muscle aches, or headache?: No
History of Present Illness
History of Present Illness:
57-year-old female w h/o GERD, HTN, HLD, hypothyroid, anemia, here for Chests CT PE study at request of her PCP. Admitted here for severe anemia 04/08/23 and had 2 PRBC transfusions. IV right antecubital infiltrated and pt had pain at the site
'immediately' and she had some pain and swelling of the arm. US RUE yesterday: acute occlusive thrombosis of R cephalic vein in antecubital fossa. States she felt SOB yesterday, this is much improved today. She spoke with her PCP Bryn Linda
yesterday for SOB, he got back to her today and recommended she come here for PE CT. She currently does not feel SOB, denies CP.
Past History
Past History
ED Past Medical History: GERD, HTN, Hypercholesterolemia, Hypothyroidism and Other (Hiatal hernia, )
ED Past Surgical History: , Orthopedic (Carpal tunnel) and Other (Lower body lift on 12/22/18, Breast augmentation. )
Social History
Tobacco: Smoker (Occasional cigar)
Alcohol: None
Drug: Marijuana
Personal:
Living: with family
Phy Exam
Physical Exam
Physical Exam:
GENERAL: No acute distress. A&Ox3.
CONSTITUTIONAL: Afebrile.
EYES: PERRL, conjunctivae normal
Neck: Supple
ENMT: moist mucus membranes, Pharynx nl
RESPIRATORY: Regular respirations, nonlabored, lungs clear.
CARDIOVASCULAR: Regular rate and rhythm, no murmurs, no rubs.
GI: Soft, nontender, normal BS
MUSCULOSKELETAL: Moves with ease. Well perfused. Mild tenderness R antecubital area, mild swelling. Distal n/v intact
SKIN: Warm, dry, pink
PSYCH: Normal mood and affect. Well kept, interactive and appropriate
NEUROLOGIC: Awake, alert and oriented. No focal neurological deficits
Course
Orders/Labs/Results
Orders:
Orders
04/09/23 15:49
EKG [Electrocardiogram (*1)] Urgent
Reason for Study: Shortness of Breath
04/09/23 15:50
EKG- Treatment ONCE
04/09/23 15:58
CBC/With Diff [Complete Blood Count/With Diff] Urgent
CMP [Comprehensive Metabolic Panel] Urgent
04/09/23 17:54
CT Chest Pe Study Urgent
Comment:
Reason For Exam: SOB w RUE DVT
Abnormal Lab Results
04/09/23
15:58
Hgb 8.5 L g/dL
(12.0-16.0)
Hct 31.6 L %
(37.0-47.0)
MCV 63.8 L fL
(81.0-99.0)
MCH 17.2 L pg
(27.0-31.0)
MCHC 26.9 L g/dL
(33.0-37.0)
RDW 31.3 H %
(11.5-14.5)
04/09/23 15:58
04/09/23 15:58
Vital Signs
Initial and Last Documented VS:
Initial Vital Signs
Temp Pulse Resp BP Pulse Ox
98.1 F 83 20 115/75 99
04/09/23 15:42 04/09/23 15:42 04/09/23 15:42 04/09/23 15:42 04/09/23 15:42
Last Documented Vital Signs
Temp Pulse Resp BP Pulse Ox
98.1 F 75 16 124/80 94
04/09/23 15:42 04/09/23 20:00 04/09/23 20:00 04/09/23 20:00 04/09/23 20:00
MDM/Problems Addressed
MDM/Problems Addressed:
57-year-old female w h/o GERD, HTN, HLD, hypothyroid, anemia, here for Chests CT PE study at request of her PCP. Admitted here for severe anemia 04/08/23 and had 2 PRBC transfusions. IV right antecubital infiltrated and pt had pain at the site
'immediately' and she had some pain and swelling of the arm. US RUE yesterday: acute occlusive thrombosis of R cephalic vein in antecubital fossa. States she felt SOB yesterday, this is much improved today. She spoke with her PCP Bryn Linda
yesterday for SOB, he got back to her today and recommended she come here for PE CT. She currently does not feel SOB, denies CP.
EKG: NSR
04/09/2023 1646 PM
CBC: Hemoglobin 8.5 trending up after transfusions from 5.3 from 5 days ago
CMP: Normal
04/09/[address] PE study radiology report read: Negative for pulmonary embolism.
Patient reassured, discharged
*Pulse Oximetry
Patient hypoxic: no
*EKG
EKG Intrepretation Date: 04/09/23
Interpretation: normal
Rate: normal
Rhythm: sinus
Ida: normal axis
Interval: normal interval
QRS Pattern: normal QRS
Ischemia: no ischemia
*Critical Care Note
Total Time (30-74mins, 75-104mins- exclusive of procedures): Not Applicable
ED Attending Note
-
Portions of this chart may have been created with voice recognition software.� Occasional wrong word or��sound alike� substitutions may have occurred due to the inherent limitations of voice recognition software.
Discharge Plan
Departure
Patient Disposition: Home (Routine Discharge)
Date of Disposition: 04/09/23
Time of Disposition: 20:18
Patient with high blood pressure during this ER visit?: No
Condition: Good
Discharge Problem:
Shortness of breath
Instructions: Shortness of Breath (Dyspnea) (DC)
Prescriptions:
No Action
valacyclovir 500 MG tablet
500 mg PO HS
dextroamphetamine-amphetamine 10 mg Tablet
10 mg PO BID
Patient Comments:
04/09/2023, prescribed to be taken 2 tablets in the AM and 1 tablet in the evening but pt. takes one tablet BID. Pt. filled this med. on 04/01/2023 for 90 tablets according to PDMP.
sucralfate 100 mg/mL Suspension
1 g PO ACHS 14 Days Qty: 1000 0RF
Patient Comments:
04/09/2023, pt. filled this med. on 04/06/2023 and is instructed to take 10 ml ACHS for 2 weeks.
ferrous sulfate 325 mg (65 mg iron) tablet
325 mg PO DAILY 30 Days Qty: 30 0RF
ascorbic acid (vitamin C) [Vitamin C] 1,000 mg Tablet
1,000 mg PO DAILY
guanfacine 1 mg Tablet
1 mg PO HS
escitalopram oxalate 5 mg Tablet
5 mg PO HS
pregabalin 150 mg Capsule
150 mg PO BID
Patient Comments:
04/09/2023, pt. filled this med. on 04/02/2023 for 60 capsules according to PDMP.
cholecalciferol (vitamin D3) 50 mcg (2,000 unit) Tablet
50 mcg PO DAILY
pantoprazole [Protonix] 40 mg tablet,delayed release (DR/EC)
40 mg PO BID@0800,1700
Referrals:
Chana,Bryn, DO [Family Provider] - As needed
Activity Restrictions/Additional Instructions:
As we discussed, your CAT scan for pulmonary embolism is negative.
Interventions
Interventions:
*Risk Screen - Suicide Last Done: 04/09/23 15:42
*General Assessment Last Done: 04/09/23 15:42
*Neglect/Abuse Screening Last Done: 04/09/23 15:42
ED- Fall Risk Assessment Last Done: 04/09/23 18:13
*ED COVID-19 Vaccine History Last Done: 04/09/23 15:42
*Nursing Disposition Last Done: 04/09/23 20:58
ED- Cardiac Assessment Last Done: 04/09/23 18:13
ED- Pulmonary Assessment Last Done: 04/09/23 18:13
Discharge Date and Time
Discharge Date/Time: 04/09/23 20:58
[2023-04-09 18:13] VITALS: BMI 29.8
[2023-04-09 19:32] VITALS: BP 123/75
[2023-04-09 20:00] VITALS: BP 124/80
== END 2023-04-09 20:58 | disposition home or self-care (01) ==
LOC: EMR 15:32
PROVIDERS: Emergency Medicine; EMERGENCY PHYSICIAN Emergency Medicine; FAMILY PHYSICIAN Family Medicine
DX: R06.02 Shortness of breath (principal); M79.601 Pain in right arm; I82.611 Acute embolism and thrombosis of superficial veins of right upper extremity; M79.89 Other specified soft tissue disorders; D64.9 Anemia, unspecified; K21.9 Gastro-esophageal reflux disease without esophagitis; I10 Essential (primary) hypertension; E03.9 Hypothyroidism, unspecified; E78.00 Pure hypercholesterolemia, unspecified; K44.9 Diaphragmatic hernia without obstruction or gangrene; M94.262 Chondromalacia, left knee; M94.261 Chondromalacia, right knee; F17.290 Nicotine dependence, other tobacco product, uncomplicated; Z88.3 Allergy status to other anti-infective agents; Z88.0 Allergy status to penicillin; Z91.048 Other nonmedicinal substance allergy status
CPT/HCPCS: 99285; 71275; 80053; 85025; 93005; Q9967

== ENCOUNTER → 2023-04-10 06:36 | Day surgery (SDC) | payer OTHER, SELFPAY | LOC: GI 06:36 | PROVIDERS: ATTENDING PHYSICIAN Internal Medicine Gastroenterology | DX: D50.0 Iron deficiency anemia secondary to blood loss (chronic) (principal); K57.30 Diverticulosis of large intestine without perforation or abscess without bleeding; K64.0 First degree hemorrhoids | CPT/HCPCS: 45378 ==

== ENCOUNTER 2023-04-12 13:46 | Emergency (ER) | payer OTHER, SELFPAY ==
[2023-04-12 13:49] VITALS: BP 137/74
--- NOTE | 2023-04-12 15:47 | ED.GENMED ---
History of Present Illness
General
Chief Complaint: Abdominal Symptoms
Time Seen by Provider: 04/12/23 15:47
Travel History
Have you had any contact with someone who has COVID-19?: No
Do you have any symptoms of coronavirus? Fever > 100 degrees, chills, cough, shortness of breath, sore throat, loss of taste or smell, muscle aches, or headache?: No
History of Present Illness
History of Present Illness:
HPI: Patient presents due to nausea with sensation of abdominal distention. She was admitted here recently and received blood transfusion. Ultimately endoscopy showed esophageal ulcers. She was placed on PPI and Carafate. 2 days ago, she had
colonoscopy that was unremarkable. She was able to advance her diet and have some more solid food last evening but then today had increasing diffuse abdominal pain more so in the lower abdomen. She has not had any vomiting. She has no diarrhea
but reports may be some degree of constipation however had minimal p.o. intake this week.
EXAM:
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
HEENT: Moist oral mucosa
CARDIOVASCULAR: No murmurs, normal heart rate and rhythm, No chest wall tenderness
PULMONARY: No respiratory distress, breath sounds are clear and equal
ABDOMEN: Soft with no peritoneal signs, minimal lower tenderness
NEUROLOGIC: Excellent strength all extremities, no coordination deficits
PSYCHIATRIC: Appropriate mental status, normal insight and judgement
EXTREMITIES: Nontender, no edema, moves all extremities equally
SKIN: No rash, no lesions, tattoos noted
ED COURSE:
4:00 PM: I initially evaluated patient
NUMBER AND COMPLEXITY OF PROBLEMS ADDRESSED AT THE ENCOUNTER
� Chronic conditions affecting care: GERD, hiatal hernia, high blood pressure, hyperlipidemia, iron deficiency anemia
� Acute Exacerbation and/or Progression of Chronic Illness: This is an acute problem
� Differential Diagnosis includes: Constipation related to iron use, complication from colonoscopy such as perforation very unlikely given the delayed presentation, intestinal spasm, IBS
AMOUNT AND/OR COMPLEXITY OF DATA TO BE REVIEWED AND ANALYZED
� I performed an independent evaluation of and my interpretation is:
EKG:
CT: CT imaging shows no sign of bowel obstruction, diverticulosis noted
X-rays:
Laboratory Studies: White count normal, hemoglobin 8.9, has been 5+ earlier this month, total bili slightly elevated but has been elevated in the past.
Other:
� Review of other/old records: I reviewed colonoscopy note from 04/10/[address] Le: TI normal, colon normal, scattered diverticula at sigmoid noted, no specimens collected. She was admitted here 04/04/2023 and discharged
04/05/2023 and had EGD that showed significant esophageal ulcers with no active or recent. She was placed on PPI and Carafate at that time.
� Clinical information was obtained by an independent historian: None needed
� Prescriptions/Medications Considered but not given:
� Further testing considered but not performed:
RISK OF COMPLICATIONS AND/OR MORBIDITY OR MORTALITY OF PATIENT MANAGEMENT
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
� Discussion with other providers:
� Escalation of care including admission/observation vs risk of discharge considered: Given patient's concern for abdominal discomfort CT imaging obtained. CT imaging unremarkable, labs relatively unremarkable and does show
improvement of hemoglobin. On reassessment at 7:40 PM, the patient appears fairly comfortable would like further sucralfate�as she is out of this. Will give short course.
Past History
Past History
ED Past Medical History: GERD, HTN, Hypercholesterolemia, Hypothyroidism and Other (Hiatal hernia, )
ED Past Surgical History: , Orthopedic (Carpal tunnel) and Other (Lower body lift on 12/22/18, Breast augmentation. )
Social History
Tobacco: Smoker (Occasional cigar)
Alcohol: None
Drug: Marijuana
Personal:
Living: with family
Phy Exam
Physical Exam
Physical Exam:
See HPI
Course
Orders/Labs/Results
Orders:
Orders
04/12/23 15:51
0.9% Sodium Chloride 1000 ml [Nss] 1,000 ml IV BOLUS
04/12/23 16:02
CT Abd/pelvis W Iv Cont Urgent
Comment:
Reason For Exam: diffuse / more lower abd pain 2d after normal colo
Complete Blood Count/With Diff Urgent
Comprehensive Metabolic Panel Urgent
Lipase Urgent
Abnormal Lab Results
04/12/23
16:02
Hgb 8.9 L g/dL
(12.0-16.0)
Hct 33.2 L %
(37.0-47.0)
MCV 64.0 L fL
(81.0-99.0)
MCH 17.1 L pg
(27.0-31.0)
MCHC 26.8 L g/dL
(33.0-37.0)
RDW 31.8 H %
(11.5-14.5)
Absolute Lymphs (auto) 0.5 L 10^3/uL
(1.2-3.4)
Neutrophils % 80.8 H %
(42.2-75.2)
Lymphocytes % 10.5 L %
(20.5-51.1)
Total Bilirubin 1.8 H mg/dl
(0.2-1.3)
04/12/23 16:02
04/12/23 16:02
Vital Signs
Initial and Last Documented VS:
Initial Vital Signs
Temp Pulse Resp BP Pulse Ox
98.3 F 91 18 137/74 99
04/12/23 13:49 04/12/23 13:49 04/12/23 13:49 04/12/23 13:49 04/12/23 13:49
Last Documented Vital Signs
Temp Pulse Resp BP Pulse Ox
98.3 F 82 16 119/74 98
04/12/23 13:49 04/12/23 17:42 04/12/23 17:42 04/12/23 17:42 04/12/23 17:42
*Critical Care Note
Total Time (30-74mins, 75-104mins- exclusive of procedures): Not Applicable
ED Attending Note
-
Portions of this chart may have been created with voice recognition software.� Occasional wrong word or��sound alike� substitutions may have occurred due to the inherent limitations of voice recognition software.
Discharge Plan
Departure
Patient Disposition: Home (Routine Discharge)
Date of Disposition: 04/12/23
Time of Disposition: 19:39
Patient with high blood pressure during this ER visit?: Yes
Discharge Problem:
Abdominal pain
Instructions: Abdominal Pain
Prescriptions:
New
sucralfate 100 mg/mL suspension
10 ml PO ACHS Qty: 200 0RF
No Action
valacyclovir 500 MG tablet
500 mg PO HS
dextroamphetamine-amphetamine 10 mg Tablet
10 mg PO BID
Patient Comments:
04/09/2023, prescribed to be taken 2 tablets in the AM and 1 tablet in the evening but pt. takes one tablet BID. Pt. filled this med. on 04/01/2023 for 90 tablets according to PDMP.
sucralfate 100 mg/mL Suspension
1 g PO ACHS 14 Days Qty: 1000 0RF
Patient Comments:
04/09/2023, pt. filled this med. on 04/06/2023 and is instructed to take 10 ml ACHS for 2 weeks.
ferrous sulfate 325 mg (65 mg iron) tablet
325 mg PO DAILY 30 Days Qty: 30 0RF
ascorbic acid (vitamin C) [Vitamin C] 1,000 mg Tablet
1,000 mg PO DAILY
guanfacine 1 mg Tablet
1 mg PO HS
escitalopram oxalate 5 mg Tablet
5 mg PO HS
pregabalin 150 mg Capsule
150 mg PO BID
Patient Comments:
04/09/2023, pt. filled this med. on 04/02/2023 for 60 capsules according to PDMP.
cholecalciferol (vitamin D3) 50 mcg (2,000 unit) Tablet
50 mcg PO DAILY
pantoprazole [Protonix] 40 mg tablet,delayed release (DR/EC)
40 mg PO BID@0800,1700
Referrals:
Bryn Zayas DO [Family Provider] -
Activity Restrictions/Additional Instructions:
Follow-up with your GI doctor. I did send a very short course of sucralfate to your pharmacy again. Your hemoglobin has improved up to 8.9 now. Your white count is normal. The CT did not show any clear cause of your pain. Return here if worse.
Interventions
Interventions:
*Risk Screen - Suicide Last Done: 04/12/23 13:49
*General Assessment Last Done: 04/12/23 13:49
*Neglect/Abuse Screening Last Done: 04/12/23 15:53
ED- Fall Risk Assessment Last Done: 04/12/23 18:39
*ED COVID-19 Vaccine History Last Done: 04/12/23 15:54
AG-Wqjrhk-Clzwefzqbc Assessment Last Done: 04/12/23 15:54
[2023-04-12] MEDS: NSS 1000 IV (16:09)
[2023-04-12 16:16] LABS: % Basophils 0.2 % (0-2); % Eosinophils 3.2 % (0-6); % Immature Granulocytes 0.4 % (0-0.5); % Lymphocytes 10.5 % (20.5-51.1); % Monocytes 4.9 % (1.7-9.3); % Neutrophils 80.8 % (42.2-75.2); Absolute Eosinophils 0.2 10^3/uL (0-0.7); Absolute Lymphocytes 0.5 10^3/uL (1.2-3.4); Absolute Monocytes 0.3 10^3/uL (0.1-0.6); Absolute Neutrophils 4.1 10^3/uL (1.4-6.5); Hematocrit 33.2 % (37.0-47.0); Hemoglobin 8.9 g/dL (12.0-16.0); Mean Corp Hgb Conc. 26.8 g/dL (33.0-37.0); Mean Corpuscular Hgb 17.1 pg (27.0-31.0); Nucleated Red Blood Cells % 0 %; Platelet Count 136 10^3/uL (130-400); Red Blood Cell Count 5.19 10^6/uL (4.20-5.40); Red Cell Dist. Width 31.8 % (11.5-14.5); White Blood Cell Count 5.1 10^3/uL (4.8-10.8)
[2023-04-12 16:20] VITALS: BP 121/70
[2023-04-12 16:36] LABS: Anisocytosis 1+; Normal RBC Morphology No
[2023-04-12 16:37] LABS: Microcytosis 1+
[2023-04-12 16:38] LABS: Hypochromasia 1+; Ovalocytes Slight; Poikilocytosis Slight
[2023-04-12 16:44] LABS: ALT (SGPT) 13 U/L (0-35); AST (SGOT) 32 U/L (14-36); Albumin 4.2 g/dl (3.5-5.0); Alkaline Phosphatase 87 U/L (38-126); Blood Urea Nitrogen 14 mg/dl (7-17); Calcium 8.6 mg/dl (8.4-10.2); Carbon Dioxide 25 mmol/L (22-30); Chloride 104 mmol/L (98-107); Glucose 88 mg/dl (70-99); Lipase 101 U/L (23-300); Potassium 3.7 mmol/L (3.5-5.1); Sodium 135 mmol/L (135-145); Total Bilirubin 1.8 mg/dl (0.2-1.3); Total Protein 6.5 g/dl (6.3-8.2); eGFR > 60.00
[2023-04-12 17:42] VITALS: BP 119/74
[2023-04-12 19:49] VITALS: BP 114/85
== END 2023-04-12 19:55 | disposition home or self-care (01) ==
LOC: EMR 13:46
PROVIDERS: EMERGENCY PHYSICIAN Emergency Medicine; FAMILY PHYSICIAN Family Medicine
DX: R10.9 Unspecified abdominal pain (principal); K21.9 Gastro-esophageal reflux disease without esophagitis; K44.9 Diaphragmatic hernia without obstruction or gangrene; D50.9 Iron deficiency anemia, unspecified; I10 Essential (primary) hypertension; F17.200 Nicotine dependence, unspecified, uncomplicated
CPT/HCPCS: 99284; 96360; 74177; 80053; 83690; 85025; Q9967

== ENCOUNTER 2023-05-13 13:57 | Outpatient (RCR) | payer OTHER, SELFPAY ==
[2023-05-13 13:45] VITALS: BP 161/68
[2023-05-13] MEDS: VENOFER 110 MG IV (14:18)
[2023-05-13 15:26] VITALS: BP 139/74
== END 2023-05-14 09:00 | disposition home or self-care (01) ==
LOC: OID 13:57
PROVIDERS: ATTENDING PHYSICIAN Nurse Practitioner Family; FAMILY PHYSICIAN Family Medicine
DX: D50.0 Iron deficiency anemia secondary to blood loss (chronic) (principal); K22.10 Ulcer of esophagus without bleeding
CPT/HCPCS: 96365; J1756

== ENCOUNTER 2023-05-27 13:48 | Outpatient (RCR) | payer OTHER, SELFPAY ==
[2023-05-20] MEDS: VENOFER 110 MG IV (14:32)
[2023-05-20 14:36] VITALS: BP 133/81
[2023-05-20 15:45] VITALS: BP 121/70
[2023-05-27 13:55] VITALS: BP 124/75
[2023-05-27] MEDS: VENOFER 110 MG IV (14:04)
[2023-05-27 15:05] VITALS: BP 103/59
== END 2023-06-18 23:59 | disposition home or self-care (01) ==
LOC: OID 13:48
PROVIDERS: ATTENDING PHYSICIAN Nurse Practitioner Family; FAMILY PHYSICIAN Family Medicine
DX: D50.0 Iron deficiency anemia secondary to blood loss (chronic) (principal); K22.10 Ulcer of esophagus without bleeding
CPT/HCPCS: 96365; J1756

== ENCOUNTER 2023-05-29 23:28 | Inpatient (IN) | payer OTHER, SELFPAY ==
[2023-05-29 17:05] VITALS: BP 120/79; BMI 29.2
[2023-05-29 17:26] LABS: % Eosinophils 4.9 % (0-6); % Immature Granulocytes 0.2 % (0-0.5); % Lymphocytes 14.6 % (20.5-51.1); % Monocytes 10.2 % (1.7-9.3); % Neutrophils 69.1 % (42.2-75.2); Absolute Eosinophils 0.2 10^3/uL (0-0.7); Absolute Lymphocytes 0.6 10^3/uL (1.2-3.4); Absolute Monocytes 0.4 10^3/uL (0.1-0.6); Absolute Neutrophils 2.8 10^3/uL (1.4-6.5); Hematocrit 38.7 % (37.0-47.0); Hemoglobin 11.1 g/dL (12.0-16.0); Mean Corp Hgb Conc. 28.7 g/dL (33.0-37.0); Mean Corpuscular Volume 76.8 fL (81.0-99.0); Nucleated Red Blood Cells % 0 %; Platelet Count 152 10^3/uL (130-400); Red Blood Cell Count 5.04 10^6/uL (4.20-5.40); Red Cell Dist. Width 26.9 % (11.5-14.5); White Blood Cell Count 4.1 10^3/uL (4.8-10.8)
[2023-05-29 17:40] LABS: Anisocytosis 1+; Normal RBC Morphology No
[2023-05-29 17:41] LABS: Hypochromasia 1+; Microcytosis 1+
[2023-05-29 17:42] LABS: Poikilocytosis Slight
[2023-05-29 17:43] LABS: Ovalocytes 1+
[2023-05-29 17:44] LABS: Target Cells Slight
[2023-05-29 17:52] LABS: ALT (SGPT) 15 U/L (0-35); AST (SGOT) 36 U/L (14-36); Alkaline Phosphatase 60 U/L (38-126); Blood Urea Nitrogen 9 mg/dl (7-17); Carbon Dioxide 27 mmol/L (22-30); Chloride 103 mmol/L (98-107); Estimated Creatinine Clearance 75 ml/min; Glucose 102 mg/dl (70-99); Potassium 4.1 mmol/L (3.5-5.1); Sodium 138 mmol/L (135-145); Total Bilirubin 0.7 mg/dl (0.2-1.3); Total Protein 5.9 g/dl (6.3-8.2); eGFR > 60.00
--- NOTE | 2023-05-29 21:00 | ED.GENMED ---
History of Present Illness
General
Chief Complaint: Breathing Problem
Source: patient
Exam Limitations: none
Time Seen by Provider: 05/29/23 20:35
Travel History
Have you had any contact with someone who has COVID-19?: No
Do you have any symptoms of coronavirus? Fever > 100 degrees, chills, cough, shortness of breath, sore throat, loss of taste or smell, muscle aches, or headache?: No
History of Present Illness
History of Present Illness:
This is a 58 year old female that comes in with c/o SOB and cough. 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 States that she had some routine labs done and she was found to have a hgb of 4. States that she was here and had PRBC's 2 units and 2 rounds of
Iron. States that she had COVID in 2020 and she started with a cough on Saturday which feels the same. States that she can't breath. Her PCP did a chest x-ray and told her that there is a mass in the right lung to come to the ER. States that she has
pain all across the back. States that she is SOB and she can hardly take a deep breath or this causes her to cough. States that she has been nauseated with diarrhea and a headache with the coughing. States that she also has some urinary burning.
States that she gets dizzy with the coughing and she has to hold her head. Denies any fever, chills, chest pain, abd pain, vomiting.
Past History
Past History
ED Past Medical History: GERD, HTN, Hypercholesterolemia, Hypothyroidism, Psychiatric (Anxiety, ) and Other (Hiatal hernia, Numbness, DVT right arm, ADHD, )
ED Past Surgical History: , Orthopedic (Carpal tunnel) and Other (Lower body lift on 12/22/18, Breast augmentation. Right breast mass)
Social History
Tobacco: Non-smoker
Alcohol: None
Drug: Marijuana
Personal:
Living: with family
Review of Systems
Review of Systems
All Other Systems: ROS reviewed and negative except as documented in HPI and ROS
Constitutional: Reports no symptoms; Denies fever or chills
EENT: Reports no symptoms
Respiratory: Reports cough and trouble breathing
Cardiac: Denies chest pain
ABD/GI: Reports nausea and diarrhea; Denies abdominal pain or vomiting
: Reports dysuria; Denies frequency or urgency
Musculoskeletal: Reports back pain (across the upper back)
Skin: Reports no symptoms
Neurological: Reports dizzy (with coughing) and headache (with coughing)
Psychiatric: Reports no symptoms
Phy Exam
General Physical Exam
General Presentation: mild distress
General age: appears stated age
General Skin: warm and dry
General Habitus: normal
General Mental: alert
General Hydration: appears well hydrated
ENT Exam
ENT Exam: TM's normal, pharynx normal and neck supple
Eye Exam
Eye Exam: EOMI
Cardiovascular Exam
Cardiovascular Exam: regular rate/rhythm, no edema, no murmur and normal peripheral pulses
Pulmonary Exam
Pulmonary Exam: generalized wheezing and other (Course breath sounds right side with coughing)
Gastrointestinal Exam
Gastrointestinal Exam: normal bowel sounds, non tender, soft, no organomegaly, no pulsatile mass and non distended
Musculoskeletal Exam
Musculoskeletal Exam: full ROM and no edema
Skin Exam
Skin Exam: normal color, warm/dry, no rash and no petechia
Psychiatric Exam
Psychiatric Exam: normal mood/affect
Scores
Heart Failure Risk
Heart Failure Risk Score: Not Applicable
Course
Orders/Labs/Results
Orders:
Orders
05/29/23 17:09
Electrocardiogram (*1) Urgent
Reason for Study: Chest Pain
EKG- Treatment ONCE
05/29/23 17:19
Type+Screen Urgent
Complete Blood Count/With Diff Urgent
Comprehensive Metabolic Panel Urgent
05/29/23 20:59
Dexamethasone Sod Phosphate [Decadron] 20 mg IV NOW STA
Ipratropium/Albuterol Sulfate [Duoneb] 3 ml INH R NOW ONE
05/29/23 21:00
CT Chest Pe Study Urgent
Comment:
Reason For Exam: SOB , cough,
05/29/23 22:03
Urinalysis Reflex To Culture Urgent
Date Specimen was Collected: 05/29/23
Time Specimen was Collected: 21:56
Urine Microscopic Reflex Cult Urgent
Urine Culture Urgent
BELLA Source: U
Specimen Description:
Date Specimen was Collected: 05/29/23
Time Specimen was Collected: 21:56
05/29/23 22:50
LevoFLOXacin 500 MG/100 ML [Levaquin] 500 mg in 100 ml IV NOW
05/29/23 22:53
COVID-19 Antigen Urgent
Source: Nasal Swab
Abnormal Lab Results
05/29/23 05/29/23
17:19 22:03
WBC 4.1 L 10^3/uL
(4.8-10.8)
Hgb 11.1 L g/dL
(12.0-16.0)
MCV 76.8 L fL
(81.0-99.0)
MCH 22.0 L pg
(27.0-31.0)
MCHC 28.7 L g/dL
(33.0-37.0)
RDW 26.9 H %
(11.5-14.5)
Absolute Lymphs (auto) 0.6 L 10^3/uL
(1.2-3.4)
Lymphocytes % 14.6 L %
(20.5-51.1)
Monocytes % 10.2 H %
(1.7-9.3)
Glucose 102 H mg/dl
(70-99)
Total Protein 5.9 L g/dl
(6.3-8.2)
Leukocyte Esterase Rfl 2+ A
(Negative)
Urine Bacteria (Reflex) Few A
(Negative)
05/29/23 17:19
05/29/23 17:19
WBC slightly low. H/H low but much improved from prior labs, Glucose nonfasting. Total protein slightly low
Vital Signs
Initial and Last Documented VS:
Initial Vital Signs
Temp Pulse Resp BP Pulse Ox
98.9 F 84 16 120/79 98
05/29/23 17:05 05/29/23 17:05 05/29/23 17:05 05/29/23 17:05 05/29/23 17:05
Last Documented Vital Signs
Temp Pulse Resp BP Pulse Ox
98.9 F 82 19 119/93 98
05/29/23 17:05 05/29/23 23:30 05/29/23 23:30 05/29/23 23:00 05/29/23 23:30
MDM/Problems Addressed
Differential Diagnosis Includes:
PE, Pulmonary mass, Wheezing
MDM/Problems Addressed:
This is a 58 year old female that comes in with c/o SOB and wheezing. State that she started with a cough on Saturday and it felt like when she had COVID. States that her PCP ordered a chest x-ray and she was told that there was a mass and sent to
the ER.
Will check labs, CT chest, Duo neb and steroids.
back into see patient. Patient continues with SOB, Exp wheezing. Explained that her CT shows that she has Pneumonia. Will admit. Hospitalist notified.
Chronic conditions affecting care:
History of DVT, Breast mass
Acute Exacerbation and/or Progression of Chronic Illness:
history of DVT, Breast mass
*Radiology
Radiology exam reviewed: radiology read reviewed (CT chest- NO CT evidence for pulmonary embolism however the exam is limited due to patient coughing and motion artifact throughout the exam. No aortic dissection. No aneurysm. Scattered foci of
groundglass opacities, suggesting the possibility of early PNA, atypical or viral, no lobar Pneumonia. NO ), all reviewed NAD by ED Provider (CT cont- No pleural effusion. Recommend follow-up with dedicated contrast-enhanced CT scan of the chest to
evaluate for clearing of the airspace disease after treatment for Pneumonia in 6-8 weeks. ) and other (US- Negative for DVT right upper extremity or the cephalic vein)
*Pulse Oximetry
Patient hypoxic: no
*EKG
Interpreted by ED Provider?: Yes
Heart Rate: 80
Rate: normal
Rhythm: sinus
[place]: normal axis
Interval: normal interval
QRS Pattern: normal QRS
Ischemia: no ischemia
*Critical Care Note
Total Time (30-74mins, 75-104mins- exclusive of procedures): Not Applicable
ED Attending Note
-
Portions of this chart may have been created with voice recognition software.� Occasional wrong word or��sound alike� substitutions may have occurred due to the inherent limitations of voice recognition software.
Discharge Plan
Departure
Patient Disposition: Admit
Date of Disposition: 05/29/23
Time of Disposition: 22:53
Admit to: Med/Surg
Presentation/result/management discussed w/ accepting MD/DO: Hospitalist
Patient with high blood pressure during this ER visit?: No
Condition: Good
Covid-19: Negative COVID-19
Discharge Problem:
SOB (shortness of breath), Bilateral wheezing, Pneumonia
Interventions
Interventions:
*Risk Screen - Suicide Last Done: 05/29/23 17:05
*General Assessment Last Done: 05/29/23 21:08
*Neglect/Abuse Screening Last Done: 05/29/23 17:05
*ED COVID-19 Vaccine History Last Done: 05/29/23 17:05
ED- Cardiac Assessment Last Done: 05/29/23 21:26
ED- Pulmonary Assessment Last Done: 05/29/23 21:26
[2023-05-29] MEDS: DUONEB 3 ML INH (21:16)
[2023-05-29] MEDS: DECADRON 20 MG IV (21:16)
[2023-05-29 21:23] VITALS: BP 119/68
[2023-05-29 22:06] VITALS: BP 123/71
[2023-05-29 22:13] LABS: Urine Albumin Negative (Neg - Trace); Urine Bilirubin Negative (Negative); Urine Character Clear (Clear); Urine Color Yellow; Urine Glucose Negative (Negative); Urine Ketone Negative (Negative); Urine Leukocyte 2+ (Negative); Urine Nitrite Negative (Negative); Urine Occult Blood Negative (Negative); Urine Specific Gravity 1.015 (<1.030); Urine Urobilinogen Negative (Neg - 1+)
[2023-05-29 22:31] LABS: Urine Red Blood Cell 0-2 /HPF (0-2); Urine White Cell 0-2 /HPF (0-5)
[2023-05-29 22:32] LABS: Urine Bacteria Few (Negative)
[2023-05-29] MEDS: LEVAQUIN 100 IV (22:56)
[2023-05-29 23:00] VITALS: BP 119/93
[2023-05-29 23:13] LABS: COVID-19 Antigen Negative (Negative)
--- NOTE | 2023-05-29 23:36 | HPS.HSE ---
Family Physician
-
Family Physician: Bryn Zayas
Chief Complaint
-
cough
History of Present Illness
58-year-old female past medical history of microcytic anemia, esophageal ulcers, GERD, hypertension, hyperlipidemia, hypothyroidism, anxiety/depression, ADHD presenting with shortness of breath and productive cough for the past 3 days. She has been
having nausea sometimes with severe cough. She gets dizzy with coughing and has to hold her head. She denies any fevers or chills, chest pain, abdominal pain or vomiting. She denies being in contact with anyone sick. Denies any history of asthma
or COPD. She started doxycycline yesterday.
She has been having some burning with urination intermittently over the past week but denies it currently.
She smokes cigars sometimes. She does use marijuana sometimes. Denies alcohol use.
Patient was recently admitted in March for iron deficiency anemia secondary to esophageal ulcers without active bleeding on endoscopy. She was transfused blood. She was also found to have right upper extremity cephalic vein thrombosis which was
not treated with anticoagulation. She continues to have pain in her right upper extremity sometimes.
Medical History
Past Medical History
Past Medical History: Reports Other ( microcytic anemia, esophageal ulcers, GERD, hypertension, hyperlipidemia, hypothyroidism, anxiety/depression, ADHD)
Past Surgical History: Reports Other (, Orthopedic (Carpal tunnel) and Other (Lower body lift on 12/22/18, Breast augmentation. Right breast mass))
Social History
Tobacco: Smoker
Alcohol: None
Drug: Marijuana
Family History
Family History: Not pertinent
Allergies / Home Medications
Allergies reflects when Allergies were last updated in [facility].
Home Medications with original date entered in [facility]
Allergy/Medication List:
Allergies
Allergy/AdvReac Type Severity Reaction Status Date / Time
Cephalosporins Allergy Pharmacy Verified 05/29/23 17:08
to Review
penicillin V Allergy throat Verified 04/10/24 17:08
swells
Penicillins Allergy throat Verified 05/29/23 17:08
swells
rabbit dander Allergy throat Verified 05/29/23 17:08
swells
Home Medications
valacyclovir 500 mg tablet 500 mg PO HS Infection 12/05/18
dextroamphetamine-amphetamine 10 mg tablet 10 mg PO BID ADHD 04/04/23
ferrous sulfate 325 mg (65 mg iron) tablet 325 mg PO DAILY 30 days #30 tabs 04/05/23
ascorbic acid (vitamin C) 1,000 mg tablet (Vitamin C) 1,000 mg PO DAILY 04/09/23
cholecalciferol (vitamin D3) 50 mcg (2,000 unit) tablet 50 mcg PO DAILY 04/09/23
escitalopram oxalate 5 mg tablet 5 mg PO HS 04/09/23
guanfacine 1 mg tablet 1 mg PO HS 04/09/23
pantoprazole 40 mg tablet,delayed release (Protonix) 40 mg PO BID 04/09/23
pregabalin 150 mg capsule 150 mg PO BID 04/09/23
doxycycline monohydrate 100 mg tablet 100 mg PO BID 05/29/23
ipratropium 0.5 mg-albuterol 3 mg (2.5 mg base)/3 mL nebulization soln 3 ml inhalation R BID 05/29/23
Review of Systems
-
History Source: Patient
A 12 point ROS was completed and negative except as noted: Yes
Constitutional: Reports No Symptoms
EENT: Reports No Symptoms
Respiratory: Reports See HPI
Cardiac: Reports No Symptoms
Abdomen/GI: Reports No Symptoms
: Reports No Symptoms
Musculoskeletal: Reports No Symptoms
Skin: Reports No Symptoms
Neurological: Reports No Symptoms
Endocrine: Reports No Symptoms
Hematologic/Lymphatic: Reports No Symptoms
Psych: Reports No Symptoms
Physical Exam
Vital Signs
Vital Signs
Temp Pulse Resp BP Pulse Ox
98.9 F 82 19 119/93 98
05/29/23 17:05 05/29/23 23:00 05/29/23 23:00 05/29/23 23:00 05/29/23 23:00
Physical Exam
General: Well Developed, Well Nourished and No Apparent Distress
HEENT: NormoCephalic, Moist mucous membranes and Atraumatic
Respiratory: Wheezes and Rhonchi
Cardiac: S1/S2 and Regular Rhythm; No Murmur or Rub
GI: Soft, Non Tender, Non Distended and Normal Bowel Sounds; No Organomegaly
Rectal: Deferred by Provider
Musculoskeletal: No Clubbing, No Cyanosis and No Edema
Skin: No Rash
Neuro: Nonfocal/grossly intact
Laboratory Results
-
05/29/23 17:19
05/29/23 17:19
Laboratory Results
Total Bilirubin 0.7 mg/dl (0.2-1.3) 05/29/23 17:19
AST 36 U/L (14-36) 05/29/23 17:19
ALT 15 U/L (0-35) 05/29/23 17:19
Alkaline Phosphatase 60 U/L (38-126) 05/29/23 17:19
Data Reviewed
-
Lab Data: Labs Reviewed by me
Old Records: Reviewed
Impression/Plan
-
IMPRESSION:
PLAN:
# Community-acquired pneumonia
-Significant bilateral wheezing/rhonchi on examination
-CT PE shows no pulm embolism but does show scattered foci of groundglass opacities suggestive of early pneumonia
-Check sputum culture
-Levaquin
-Dexamethasone 4 mg every 12
-DuoNebs every 6 hours
-Mucinex
# History of recent right upper extremity cephalic vein thrombosis with persistent symptoms
-Recheck venous ultrasound to evaluate for DVT
# Dysuria
-Urinalysis negative for infection
-Await urine culture
History of severe microcytic anemia secondary to esophageal ulcers
-Hemoglobin better than previously at 11
-Continue iron supplement
History of GERD/hiatal hernia
-Continue Protonix
Essential hypertension
-Continue guanfacine
Hyperlipidemia
Hypothyroidism
Anxiety/depression
-Continue Lexapro
ADHD
-Continue Adderall
History of herpes
-Continue prophylactic Valtrex
History of carpal tunnel
-Continue pregabalin
Occasional cigar smoker
Marijuana user
Full code
DVT prophylaxis�heparin
Regular diet
[2023-05-30] VITALS: BMI 29.2
[2023-05-30] MEDS: ROBITUSSIN AC 5 ML PO ×2 (01:50→22:46)
[2023-05-30 02:03] VITALS: BP 112/64
[2023-05-30 06:25] LABS: % Basophils 0.2 % (0-2); % Immature Granulocytes 0.4 % (0-0.5); % Monocytes 1.1 % (1.7-9.3); % Neutrophils 91.3 % (42.2-75.2); Absolute Lymphocytes 0.3 10^3/uL (1.2-3.4); Absolute Monocytes 0.1 10^3/uL (0.1-0.6); Absolute Neutrophils 4.3 10^3/uL (1.4-6.5); Hemoglobin 11.7 g/dL (12.0-16.0); Mean Corp Hgb Conc. 29.3 g/dL (33.0-37.0); Mean Corpuscular Hgb 22.1 pg (27.0-31.0); Mean Corpuscular Volume 75.6 fL (81.0-99.0); Nucleated Red Blood Cells % 0 %; Platelet Count 164 10^3/uL (130-400); Red Blood Cell Count 5.29 10^6/uL (4.20-5.40); Red Cell Dist. Width 26.8 % (11.5-14.5); White Blood Cell Count 4.7 10^3/uL (4.8-10.8)
[2023-05-30 06:47] LABS: ALT (SGPT) 16 U/L (0-35); AST (SGOT) 30 U/L (14-36); Albumin 4.2 g/dl (3.5-5.0); Alkaline Phosphatase 63 U/L (38-126); Blood Urea Nitrogen 11 mg/dl (7-17); Calcium 9.4 mg/dl (8.4-10.2); Carbon Dioxide 26 mmol/L (22-30); Chloride 101 mmol/L (98-107); Estimated Creatinine Clearance 75 ml/min; Glucose 155 mg/dl (70-99); Potassium 5.1 mmol/L (3.5-5.1); Sodium 137 mmol/L (135-145); Total Bilirubin 0.7 mg/dl (0.2-1.3); Total Protein 6.1 g/dl (6.3-8.2); eGFR > 60.00
[2023-05-30] MEDS: DUONEB 3 ML INH ×4 (07:23→19:50)
[2023-05-30] MEDS: MUCINEX 600 MG PO ×2 (08:06→20:13)
[2023-05-30] MEDS: PROTONIX 40 MG PO ×2 (08:06→20:13)
[2023-05-30] MEDS: LYRICA 150 MG PO ×2 (08:06→20:13)
[2023-05-30] MEDS: VITAMIN C 1000 MG PO (08:07)
[2023-05-30] MEDS: ADDERALL 10 MG PO (08:08)
[2023-05-30] MEDS: HEPARIN 5000 UNITS SC ×2 (08:09→20:13)
[2023-05-30] MEDS: VITAMIN D3 (cholecalciferol) 50 MCG PO (08:30)
[2023-05-30] MEDS: FEOSOL 325 MG PO (08:30)
[2023-05-30] MEDS: DECADRON 4 MG IV ×2 (08:31→20:14)
--- NOTE | 2023-05-30 15:47 | W.PN.HOSP.TC ---
Today's Communication/Plan
-
All discussed with the patient in detail expressed understanding
Discussed with the nurse
Assessment / Plan
Assessment / Plan
Physical exam:
General: Awake, alert and oriented x3, not in distress and holds appropriate conversation.
HEENT: No active discharge, ecchymosis or bruising, moist lips, tongue and mucous membrane.
Eyes: No discharge or red conjunctiva, no nystagmus, pupils are reactive and equal
Neck:Supple, no JVD no bruit no goiter.
Respiratory: Normal AP contour and diameter, normal chest wall movement, normal respiratory effort, no respiratory distress,
Lungs: Good air entry bilaterally, no wheezing or rhonchi, no rales or crackles
Heart: S1, S2 regular, normal rate, no added sound.
Gastrointestinal: Positive bowel sounds, soft, nontender, no guarding or rigidity or organomegaly
Musculoskeletal: , no chest wall abnormality or tenderness. All joints and extremities have good range of motion, no muscle tenderness or any joint swelling or tenderness.
Extremities: No pitting edema, good peripheral pulses, good range of motion
Skin: Warm and dry, no ulceration, normal color.
Neurological: Awake, alert and oriented x3, no facial droop, normal mentation, moves extremities freely, speech clear and comprehensive, good muscle tone
Psychiatric: Normal mood, normal thought and judgment, normal affect,
Assessment and plan:
# Community-acquired pneumonia
-Significant bilateral wheezing/rhonchi on examination
-CT PE shows no pulm embolism but does show scattered foci of groundglass opacities suggestive of early pneumonia
-Check sputum culture
-Patient has a history of COVID in the past and not sure this may lead to some prominent lung issues,
-Levaquin
-Dexamethasone 4 mg every 12 will continue she still symptomatic
-Continue DuoNebs every 6 hours
-Mucinex
-Will start some IV fluid
-Repeat CT of chest in 8 weeks to follow-up on resolution
# History of recent right upper extremity cephalic vein thrombosis with persistent symptoms
-Ultrasound negative for DVT
# Dysuria
-Urinalysis negative for infection
-Await urine culture
History of severe microcytic anemia secondary to esophageal ulcers
-Hemoglobin better than previously at 11
-Continue iron supplement
History of GERD/hiatal hernia
-Continue Protonix
Essential hypertension
-Continue guanfacine
Hyperlipidemia
Hypothyroidism
Anxiety/depression
-Continue Lexapro
ADHD
-Continue Adderall
History of herpes
-Continue prophylactic Valtrex
History of carpal tunnel
-Continue pregabalin
Occasional cigar smoker
Marijuana user
Full code
DVT prophylaxis�heparin
Regular diet
Anticipated Discharge: 24 - 48 hours
Subjective/Interval History
-
Date of Service: May 30, 2023
General exam couple times today, still symptomatic and sick looking and coughing and congested and short of breath, afebrile denies any nausea or vomiting or any headache or vision change, no urinary symptoms
Objective Data
-
Labs:
Laboratory Results
05/30/23
06:01
WBC 4.7 L
Hgb 11.7 L
Hct 40.0
Plt Count 164
Sodium 137
Potassium 5.1
Chloride 101
Carbon Dioxide 26
BUN 11
Creatinine 0.8
Glucose 155 H
Calcium 9.4
Total Bilirubin 0.7
AST 30
ALT 16
Alkaline Phosphatase 63
Vital Signs:
Vital Signs
Temp Pulse Resp BP Pulse Ox
99.1 F 85 15 112/64 93
05/30/23 02:03 05/30/23 15:26 05/30/23 15:26 05/30/23 02:03 05/30/23 07:30
Review of Systems
-
All other systems: Reviewed and negative
[2023-05-30 17:31] VITALS: BP 121/75
[2023-05-30] MEDS: ADDERALL PO (17:55)
[2023-05-30] MEDS: NSS 1000 IV (17:56)
[2023-05-30] MEDS: LEVAQUIN 150 IV (21:43)
[2023-05-30] MEDS: VALTREX 500 MG PO (21:43)
[2023-05-30] MEDS: LEXAPRO 5 MG PO (21:44)
[2023-05-30] MEDS: TYLENOL 650 MG PO (22:48)
[2023-05-30 23:00] VITALS: BP 119/66
[2023-05-31] MEDS: BENADRYL 25 MG PO (03:00)
[2023-05-31] MEDS: TYLENOL 650 MG PO (05:36)
[2023-05-31] MEDS: NSS 1000 IV (05:36)
[2023-05-31 07:15] VITALS: BP 136/75
[2023-05-31] MEDS: DUONEB 3 ML INH ×2 (07:23→11:03)
[2023-05-31] MEDS: VITAMIN D3 (cholecalciferol) 50 MCG PO (07:41)
[2023-05-31] MEDS: LYRICA 150 MG PO ×2 (07:41→20:34)
[2023-05-31] MEDS: HEPARIN 5000 UNITS SC ×2 (07:41→20:35)
[2023-05-31] MEDS: MUCINEX 600 MG PO ×2 (07:41→20:34)
[2023-05-31] MEDS: PROTONIX 40 MG PO ×2 (07:41→20:34)
[2023-05-31] MEDS: FEOSOL 325 MG PO (07:41)
[2023-05-31] MEDS: ADDERALL PO (07:47)
[2023-05-31] MEDS: VITAMIN C 1000 MG PO (07:54)
[2023-05-31] MEDS: DECADRON 4 MG IV ×2 (08:01→20:34)
--- NOTE | 2023-05-31 12:18 | W.PN.HOSP.TC ---
Today's Communication/Plan
-
Continue steroids with a taper.
Check influenza and RSV
Consult pulmonary
Assessment / Plan
Assessment / Plan
Assessment and plan:
# BL GOO with acute upper and lower respiratory symtoms - Suspect her underlying early pneumonia, viral or inflammatory.Community-acquired pneumonia
-CT PE shows no pulm embolism but does show scattered foci of groundglass opacities suggestive of early pneumonia
- COVID-19 negative. Check flu and RSV. Check blood cultures.
-Continue with empirical antibiotics and steroids. She is seeing improvement but still wheezy and rhonchorous today.
-Obtain pulmonary input.
History of COVID-19 infection in 2020-subsequently patient had a recurrent respiratory issues needing symptomatic treatment with nebulizer. Never had pulmonary lung function or pulmonary eval.
# History of recent right upper extremity cephalic vein thrombosis with persistent symptoms
-Ultrasound negative for DVT
History of severe microcytic anemia secondary to esophageal ulcers
-Hemoglobin better than previously at 11
-Continue iron supplement
History of GERD/hiatal hernia
-Continue Protonix
Essential hypertension
-Continue guanfacine
Hyperlipidemia
Hypothyroidism
Anxiety/depression
-Continue Lexapro
ADHD
-Continue Adderall
History of herpes
-Continue prophylactic Valtrex
History of carpal tunnel
-Continue pregabalin
Occasional cigar smoker
Marijuana user
Full code
DVT prophylaxis�heparin
Regular diet
Anticipated Discharge: Within 24 hours
Subjective/Interval History
-
Date of Service: May 31, 2023
feeling improved.
Patient has since COVID 19 infection in 2020 has been having recurrent respiratory infections once in every 4 months. This time she started to have symptoms on Saturday with a cough and phlegm and some nasal congestion. Due to her respiratory
issues PCP prescribed nebulizers which she uses twice a day. 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 She has a lot of allergies but no seasonal allergies.
Objective Data
-
Vital Signs:
Vital Signs
Temp Pulse Resp BP Pulse Ox
97.8 F 75 14 136/75 96
05/31/23 07:15 05/31/23 11:05 05/31/23 11:05 05/31/23 07:15 05/31/23 07:26
I&O
05/30/23 05/31/23 06/01/23
06:59 06:59 06:59
Intake Total 0 / 0
Balance 1680 / 0
Review of Systems
-
Constitutional: Denies Fever
EENT: Denies Sore Throat
Respiratory: Reports Cough and Trouble Breathing (IMPROVED)
Cardiac: Denies Chest Pain
Abdomen/GI: Denies Nausea or Vomiting
Neuro: Denies Dizzy
Physical Exam
-
General: No Apparent Distress
HEENT: Moist Mucous Membranes
Respiratory: Wheezes, Rhonchi and Non Labored Respirations; Negative Accessory Resp Muscle Use
Cardiac: Regular Rhythm and S1/S2; Negative Tachycardic
Musculoskeletal: No Edema
Neuro: AO x 3
Data Reviewed
-
Labs: Labs Reviewed by me
--- NOTE | 2023-05-31 13:17 | CON.PUL ---
Addendum entered and electronically signed by Demetrice Cabrera, 05/31/23 16:00:
Spirometry 05/31/23: FEV1 1.87L 73%, FVC 2.53L 76%, ratio 74. Post FEV1 2.0L 78%, no BD response
FEF 25-751.25L 53%, post 78% w/ 47% change
Suggests restrictive pattern, mildly reduced. Small airways disease present, suggestive of asthma.
Original Note:
Consultation
Consultation Request
Date/Time Consultation Requested: 05/31/23
Date/Time Consultation Performed: 05/31/23
Performing Provider: Rick
Reason for Consultation: Acute cough
Medical History
-
History of Present Illness:
Patient is a 58-year-old female with past medical history of microcytic anemia, esophageal ulcers, GERD, hypertension, hyperlipidemia, hypothyroidism, anxiety/depression, ADHD presenting with shortness of breath and productive cough for the past 3
days. Coughing spells are associated with nausea and dizziness. She denies any known triggers. It was noted she was started on doxycycline day [employer].
CT on arrival showing no acute process, neg PE, there is basilar haziness. She is placed on IV steroids with some improvement.
Denies any history of asthma as a child. She does have comorbid history of allergic rhinitis and eczema. In the past had to be on steroids/allergy shots. She never had exercise intolerance until recently post COVID 2 years ago. Since then she
has had on/off shortness of breath, tightness, coughing. She has never regained her sense of smell or taste.
Denies lifelong cigarette smoking. She smokes cigars sometimes. She does use marijuana sometimes. Denies alcohol use.
Denies family history of lung disease.
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 She notes that she plans to stop taking this and will likely stop competing officially.
Past Medical History
Past Medical History: Other (see list below)
Social History
Tobacco: Non-smoker
Alcohol: None
Drug: None
Family History
Family History: Reviewed & Not Pertinent
Allergies / Home Medications
Allergies
Allergy/AdvReac Type Severity Reaction Status Date / Time
Cephalosporins Allergy patient Verified 05/30/23 16:06
unaware of
this
allergy
penicillin V Allergy throat Verified 05/30/23 16:06
swells/as
a teenager
Penicillins Allergy throat Verified 05/30/23 16:06
swells/as
a teenager
rabbit dander Allergy throat Verified 05/29/23 17:08
swells
Home Medications
�Medication �Instructions �Recorded �Confirmed �Last Taken �Type
valacyclovir 500 mg tablet 500 mg PO HS Infection 12/05/18 05/29/23 05/28/23 History
dextroamphetamine-amphetamine 10 10 mg PO BID ADHD 04/04/23 05/29/23 05/29/23 History
mg tablet
ferrous sulfate 325 mg (65 mg 325 mg PO DAILY 30 days #30 tabs 04/05/23 05/29/23 05/27/23 Rx
iron) tablet
ascorbic acid (vitamin C) 1,000 mg 1,000 mg PO DAILY 04/09/23 05/29/23 05/29/23 History
tablet (Vitamin C)
cholecalciferol (vitamin D3) 50 50 mcg PO DAILY 04/09/23 05/29/23 05/29/23 History
mcg (2,000 unit) tablet
escitalopram oxalate 5 mg tablet 5 mg PO HS 04/09/23 05/29/23 05/28/23 History
guanfacine 1 mg tablet 1 mg PO HS 04/09/23 05/29/23 05/28/23 History
pantoprazole 40 mg tablet,delayed 40 mg PO BID 04/09/23 05/29/23 05/29/23 20:00 History
release (Protonix)
pregabalin 150 mg capsule 150 mg PO BID 04/09/23 05/29/23 05/29/23 History
doxycycline monohydrate 100 mg 100 mg PO BID 05/29/23 05/29/23 05/29/23 History
tablet
ipratropium 0.5 mg-albuterol 3 mg 3 ml inhalation R BID 05/29/23 05/29/23 05/29/23 History
(2.5 mg base)/3 mL nebulization
soln
Review of Systems
-
History Source: Patient
All other systems: Negative unless noted
Vitals / Labs / Diagnostic Testing
Vital Signs
Temp Pulse Resp BP Pulse Ox
97.8 F 75 14 136/75 96
05/31/23 07:15 05/31/23 11:05 05/31/23 11:05 05/31/23 07:15 05/31/23 07:26
Lab Data
05/30/23 06:01
05/30/23 06:01
Microbiology
05/31/23 12:53 Nasalpharynx Respiratory Syncytial Virus Culture - Final
Negative for Respiratory Syncytial Virus.
A false negative result may be obtained with a specimen
collected early in the acute phase. If symptoms persist, a
new specimen should be tested.
05/29/23 22:03 Urine Urine Culture - Final
No Significant Growth
05/29/23 23:54 Sputum Respiratory Culture - Final
05/29/23 23:54 Sputum Gram Stain - Final
Diagnostic Testing:
Physical Exam
-
HEENT: Normocephalic, Anicteric and Moist Mucous Membranes
Cardiovascular: S1/S2 and Regular Rhythm
Respiratory: Clear and Non-Labored Respirations
GI: Soft, Non Distended and Non Tender
Neurology: Awake, Alert, Oriented, AO x 3 and No Motor Deficits
Skin: Warm, Dry and Good Color
General: Comfortable and Other (NAD)
Assessment
-
Patient is a 58-year-old female with past medical history of microcytic anemia, esophageal ulcers, GERD, hypertension, hyperlipidemia, hypothyroidism, anxiety/depression, ADHD presenting with shortness of breath and productive cough for the past 3
days. She denies any known triggers. It was noted she was started on doxycycline day [employer]. CT on arrival showing no acute process, neg PE, there is basilar haziness. She is placed on IV steroids with some improvement. We are consulted for eval.
Acute asthma exacerbation
History of COVID illness 2 years ago, suspected longhauler
Allergic rhinitis history on allergy shots in past
Eczema
Abnl CT Chest
Subacute cough
SOB
Conditions present [employer]
Non Q-wave NH
Dyslipidemia
CAD Small Distal OM occlusion
Essential hypertension
ADHD
Anxiety
Carpel tunnel
Section
Lipoma Removed
Plan
No oxygen was needed on admission, currently saturating >90% on RA
Prior history of lung disease is not noted --
Denies any history of asthma as a child.
She does have comorbid history of allergic rhinitis and eczema. In the past had to be on steroids/allergy shots.
She never had exercise intolerance until recently post COVID 2 years ago.
Since then she has had on/off shortness of breath, tightness, coughing.
She has never regained her sense of smell or taste.
Denies lifelong cigarette smoking. She smokes cigars sometimes.
Suspect patient has underlying asthma, given comorbid allergies/eczema, that has been triggered post COVID
There may be some component of long hauler syndrome as well
CT obtained indicating bilateral haziness, mosaicism which can be seen with obstructive lung disease
It is worth mentioning there was significant motion artifact
Prior CT chests are similar
We will obtain bedside PFT and initiate inhalers
She is started on IV decadron which I will transition to prednisone
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
She notes that she plans to stop taking this and will likely stop competing officially.
Recently admitted in March for iron deficiency anemia secondary to esophageal ulcers without active bleeding on endoscopy.
She was transfused blood.
She was also found to have right upper extremity cephalic vein thrombosis which was not treated with anticoagulation.
CT neg for PE
For completeness, will check procal/proBNP
No prior ECHO for review, but can obtain if positive
Will need outpatient pulmonary evaluation in our office for PFTs and 6MWT
Reviewed with patient
We will follow
Diagnostic Data
Chest X-Ray:
CT Scan: CHEST 05/29/23- There is no large filling defect within the central pulmonary emboli. Subsegmental branches could not be evaluated. Motion artifact limits the exam. There are mildly prominent axillary lymph nodes. None are abnormally
enlarged. No adenopathy in the mediastinum or hilar regions. There are mildly prominent right hilar lymph nodes. Likely reactive. When compared to a CT scan of the chest 6 weeks ago there are new scattered groundglass opacities, which suggests the
possibility of early pneumonia. This could be atypical or viral, no lobar pneumonia. No pleural effusion. No pneumothorax. The thyroid is heterogeneous. Regional skeleton intact. Patient with bilateral breast implants. Limited imaging in the upper
abdomen. The spleen is enlarged measuring 14 cm in anterior to posterior dimension.
Echo:
PFT's:
Reports and relevant images were personally reviewed.
[2023-05-31 14:58] VITALS: BP 124/69
[2023-05-31] MEDS: ADDERALL 10 MG PO (15:59)
[2023-05-31 16:34] LABS: Procalcitonin < 0.05 ng/ml (0.0-0.25)
[2023-05-31 16:36] LABS: NT-proBNP 407 pg/ml
--- NOTE | 2023-05-31 17:22 | CM ---
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
adm with cough and dx is early pna.she is on iv abx and steroids.plan is for dc home with no needs.significant othrt or daughter to transport her home.plan:home with no needs.
[2023-05-31] MEDS: ADVAIR HFA 230/21 MCG INHALER 2 PUFF INH (19:44)
[2023-05-31] MEDS: ProAIR HFA INHALER 1 PUFF INH (19:46)
[2023-05-31] MEDS: LEXAPRO 5 MG PO (20:34)
[2023-05-31] MEDS: TESSALON PERLES 200 MG PO (20:34)
[2023-05-31] MEDS: VALTREX 500 MG PO (21:57)
[2023-05-31] MEDS: LEVAQUIN 150 IV (21:57)
[2023-05-31 23:00] VITALS: BP 125/87
[2023-05-31] MEDS: ROBITUSSIN DM 5 ML PO (23:44)
[2023-06-01 07:26] VITALS: BP 132/80
[2023-06-01] MEDS: ADVAIR HFA 230/21 MCG INHALER 2 PUFF INH (07:36)
[2023-06-01] MEDS: DELTASONE 50 MG PO (09:08)
[2023-06-01] MEDS: VITAMIN C 1000 MG PO (09:09)
[2023-06-01] MEDS: HEPARIN 5000 UNITS SC (09:10)
[2023-06-01] MEDS: ADDERALL 10 MG PO (09:10)
[2023-06-01] MEDS: FEOSOL 325 MG PO (09:10)
[2023-06-01] MEDS: MUCINEX 600 MG PO (09:10)
[2023-06-01] MEDS: PROTONIX 40 MG PO (09:10)
[2023-06-01] MEDS: VITAMIN D3 (cholecalciferol) 50 MCG PO (09:10)
[2023-06-01] MEDS: LYRICA 150 MG PO (09:10)
--- NOTE | 2023-06-01 10:48 | W.PN.PUL3 ---
Today's Communication / Plan
-
Transition to oral prednisone, wean off for the next 7 to 10 days
GERD therapy
Outpatient follow-up with pulmonary
Information left in chart
Disposition efforts
Assessment
-
Patient is a 58-year-old female with past medical history of microcytic anemia, esophageal ulcers, GERD, hypertension, hyperlipidemia, hypothyroidism, anxiety/depression, ADHD presenting with shortness of breath and productive cough for the past 3
days. She denies any known triggers. It was noted she was started on doxycycline day [employer]. CT on arrival showing no acute process, neg PE, there is basilar haziness. She is placed on IV steroids with some improvement. We are consulted for eval.
Acute asthma exacerbation
History of COVID illness 2 years ago, suspected longhauler
Allergic rhinitis history on allergy shots in past
Eczema
Abnl CT Chest
Subacute cough
SOB
Conditions present [employer]
Non Q-wave DC
Dyslipidemia
CAD Small Distal OM occlusion
Essential hypertension
ADHD
Anxiety
Carpel tunnel
Section
Lipoma Removed
Plan
Patient appears to be improved objectively and subjectively
No wheezing on exam noted
Ambulating in the room without difficulty
Prior history of lung disease is not noted --
Denies any history of asthma as a child.
She does have comorbid history of allergic rhinitis and eczema. In the past had to be on steroids/allergy shots.
She never had exercise intolerance until recently post COVID 2 years ago.
Since then she has had on/off shortness of breath, tightness, coughing.
She has never regained her sense of smell or taste.
Denies lifelong cigarette smoking. She smokes cigars sometimes.
Suspect patient has underlying asthma, given comorbid allergies/eczema, that has been triggered post COVID
There may be some component of long hauler syndrome as well
CT obtained indicating bilateral haziness, mosaicism which can be seen with obstructive lung disease
It is worth mentioning there was significant motion artifact
Prior CT chests are similar
Transition to oral prednisone
Reviewed bedside spirometry, mild restriction is suggested but otherwise pretty good. There is small airways disease
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
She notes that she plans to stop taking this and will likely stop competing officially.
Recently admitted in March for iron deficiency anemia secondary to esophageal ulcers without active bleeding on endoscopy.
She was transfused blood.
She was also found to have right upper extremity cephalic vein thrombosis which was not treated with anticoagulation.
CT neg for PE
Will need outpatient pulmonary evaluation in our office for PFTs and 6MWT
Reviewed with patient
Disposition efforts
Diagnostic Data
Chest X-Ray:
CT Scan: CHEST 05/29/23- There is no large filling defect within the central pulmonary emboli. Subsegmental branches could not be evaluated. Motion artifact limits the exam. There are mildly prominent axillary lymph nodes. None are abnormally
enlarged. No adenopathy in the mediastinum or hilar regions. There are mildly prominent right hilar lymph nodes. Likely reactive. When compared to a CT scan of the chest 6 weeks ago there are new scattered groundglass opacities, which suggests the
possibility of early pneumonia. This could be atypical or viral, no lobar pneumonia. No pleural effusion. No pneumothorax. The thyroid is heterogeneous. Regional skeleton intact. Patient with bilateral breast implants. Limited imaging in the upper
abdomen. The spleen is enlarged measuring 14 cm in anterior to posterior dimension.
Echo:
PFT's:
Reports and relevant images were personally reviewed.
Subjective Data
-
Date of Service:
Date of Service: June 01, 2023
Subjective:
Patient seen and examined earlier this morning. Patient feels well, denies chest pain, shortness of breath, nausea, cough. Feels ready to go home. Ambulating in room
Objective Data
Data Reviewed
Vital Signs / I&O / Oxygen:
Vital Signs
Temp Pulse Resp BP Pulse Ox
98 F 77 18 132/80 97
06/01/23 07:26 06/01/23 07:42 06/01/23 07:42 06/01/23 07:26 06/01/23 07:42
Intake and Output
05/31/23 06/01/23 06/02/23
06:59 06:59 06:59
Intake Total 1680 / 0 2099
Balance 1680 / 1680 2099
SaO2 97
Physical Exam
General: Comfortable
HEENT: Normocephalic and Anicteric
Cardiovascular: S1-S2, Regular Rhythm, Murmur (n) and Rub (n)
Respiratory: Wheeze (n), Crackles (n), Rhonchi (n) and Non-Labored Respirations
GI: Soft, Non Distended and Non Tender
Neurology: Alert and No Motor Deficits
Skin: Cyanosis (n), Jaundice (n), Rash (n) and Other (Multiple tattoos)
Labs/Micro/Reports
Lab Data
05/30/23 06:01
05/30/23 06:01
Microbiology
05/31/23 12:53 Nasal Swab Influenza Types A & B (MARISOL) - Final
Negative for Influenza A & B, NAAT
Negative results must be combined with clinical observations
and patient history.
Nucleic Acid Amplification test (NAAT)performed on the
[employer] platform.
05/31/23 12:53 Nasalpharynx Respiratory Syncytial Virus Culture - Final
Negative for Respiratory Syncytial Virus.
A false negative result may be obtained with a specimen
collected early in the acute phase. If symptoms persist, a
new specimen should be tested.
05/29/23 22:03 Urine Urine Culture - Final
No Significant Growth
05/29/23 23:54 Sputum Respiratory Culture - Final
05/29/23 23:54 Sputum Gram Stain - Final
--- NOTE | 2023-06-01 12:19 | W.DS.TRANS ---
DC Summary - Armhole Baster Hand
-
Discharge Instructions:
Discharge Diagnosis/Procedures Asthma flare
Diet Regular
Activity As tolerated
Driving Restrictions As prior to admission
Bathing Restrictions None
Instructions:
Stand-Alone Forms:
Changes to Home Medications: Yes
Discharge Medications:
DC Medications w/original date entered in T[facility]'S LIST
valacyclovir 500 mg tablet 500 mg PO HS Infection 12/05/18
dextroamphetamine-amphetamine 10 mg tablet 10 mg PO BID ADHD 04/04/23
ferrous sulfate 325 mg (65 mg iron) tablet 325 mg PO DAILY 30 days #30 tabs 04/05/23
ascorbic acid (vitamin C) 1,000 mg tablet (Vitamin C) 1,000 mg PO DAILY 04/09/23
cholecalciferol (vitamin D3) 50 mcg (2,000 unit) tablet 50 mcg PO DAILY 04/09/23
escitalopram oxalate 5 mg tablet 5 mg PO HS 04/09/23
guanfacine 1 mg tablet 1 mg PO HS 04/09/23
pantoprazole 40 mg tablet,delayed release (Protonix) 40 mg PO BID 04/09/23
pregabalin 150 mg capsule 150 mg PO BID 04/09/23
ipratropium 0.5 mg-albuterol 3 mg (2.5 mg base)/3 mL nebulization soln 3 ml inhalation R BID 05/29/23
albuterol sulfate 90 mcg/actuation aerosol inhaler 1 puff inhalation R Q4HPRN PRN SOB, cough, wheeze #6.7 grams 06/01/23
dextromethorphan-guaifenesin 10 mg-100 mg/5 mL oral syrup 5 ml PO Q6HPRN PRN productive cough #237 mL 06/01/23
fluticasone propionate 230 mcg-salmeterol 21 mcg/actuation HFA inhaler 2 puff inhalation R BID #12 grams 06/01/23
prednisone 10 mg tablet 10 mg PO DIRECTED #30 tabs 06/01/23
Home Medication Changes
New medication - prednisone taper, albuterol inh, advair diskus
Pending Results: No
--- NOTE | 2023-06-01 13:33 | W.PN.HOSP.TC ---
Today's Communication/Plan
-
DC
Assessment / Plan
Assessment / Plan
Assessment and plan:
# BL GGO with acute upper and lower respiratory symtoms - Suspect her underlying early pneumonia, viral or inflammatory.Community-acquired pneumonia
-CT PE shows no pulm embolism but does show scattered foci of groundglass opacities suggestive of early pneumonia
- COVID-19 negative. Influenza and RSV neg. blood cultures neg so far. Procalcitonin normal .Doubt bacterial infection . DC further abx
- Pulmonary input noted -concern for ashtma flare. Spirometry noted.
- Improved with steroids -cw taper
- Follow with pulm as OP
History of COVID-19 infection in 2020-subsequently patient had a recurrent respiratory issues needing symptomatic treatment with nebulizer. Never had pulmonary lung function or pulmonary eval.Appt pulm input.
# History of recent right upper extremity cephalic vein thrombosis with persistent symptoms
-Ultrasound negative for DVT
History of severe microcytic anemia secondary to esophageal ulcers
-Hemoglobin better than previously at 11
-Continue iron supplement
History of GERD/hiatal hernia
-Continue Protonix
Essential hypertension
-Continue guanfacine
Hyperlipidemia
Hypothyroidism
Anxiety/depression
-Continue Lexapro
ADHD
-Continue Adderall
History of herpes
-Continue prophylactic Valtrex
History of carpal tunnel
-Continue pregabalin
Occasional cigar smoker
Marijuana user
Full code
DVT prophylaxis�heparin
Regular diet
Medically stable for dc
Anticipated Discharge: Today
Subjective/Interval History
-
Date of Service: June 01, 2023
feeling much improved. Denies any shortness of breath. No wheezing.
No chest pain.
No fever or chills.
No nausea vomiting.
Objective Data
-
Vital Signs:
Vital Signs
Temp Pulse Resp BP Pulse Ox
98 F 77 18 132/80 97
06/01/23 07:26 06/01/23 07:42 06/01/23 07:42 06/01/23 07:26 06/01/23 07:42
I&O
05/31/23 06/01/23 06/02/23
06:59 06:59 06:59
Intake Total 1679
Balance 1679
Review of Systems
-
Constitutional: Denies Fever
EENT: Denies Sore Throat
Respiratory: Reports Cough; Denies Trouble Breathing
Cardiac: Denies Chest Pain
Abdomen/GI: Denies Abdominal Pain, Nausea or Vomiting
Neuro: Denies Dizzy
Physical Exam
-
General: No Apparent Distress
HEENT: Moist Mucous Membranes
Respiratory: Clear to Auscultation and Non Labored Respirations; Negative Wheezes, Crackles or Accessory Resp Muscle Use
Cardiac: Regular Rhythm and S1/S2; Negative Tachycardic
GI: Soft
Neuro: AO x 3
Psych: Calm
Data Reviewed
-
Labs: Labs Reviewed by me
--- NOTE | 2023-06-01 18:30 | W.DCSUMMARY ---
Discharge Summary
Discharge Data
Date of Admission: 05/29/23
Date of Discharge: 06/01/23
-
Pending Results: No
Hospital Course
Primary diagnosis:
Acute left foot exacerbation
History of COVID illness 2 years ago, suspected long-hauler
Abnormal chest CT with groundglass opacities
Secondary diagnosis:
Allergic rhinitis
Eczema
History of gastrointestinal bleeding/esophageal ulcers.
Hospital course:
Patient presented with 3 days of shortness of breath and progressive cough. She was started on doxycycline as an outpatient but she continued to have symptoms so presented to the hospital. She was noted to be bronchospastic on admission.
She was diagnosed with COVID infection 2 years ago and ever since she had recurrent issues with respiratory symptoms. Never seen a liner inserter.
She also has allergic rhinitis and eczema. Not on any inhaler therapy.
CT chest admission showed bilateral haziness, back exam which could be seen with obstructive lung disease. There is also was mentioning that there was significant motion artifact. Prior chest CTs are similar.
Patient seems to have reactive airway disease but in view of recurrent symptoms post COVID-19 and pulmonary consultation was obtained. She had bedside spirometry which showed mild restriction. There is a small airway disease suggestion. I do
suspect probably she has underlying asthma and this is an exacerbation given comorbid allergies/eczema that has been triggered post COVID. There may be component of long-haul her syndrome as well felt by pulmonary.
She did well with steroids and nebulizers and when she was stable she was discharged home on steroid taper and albuterol inhaler and steroid inhaler. She will follow-up with pulmonary as an outpatient.
Consultants on board:
Pulmonary-Demetrice Jones
Discharge Plan
-
Patient Disposition: Home (Routine Discharge)
Discharge Diagnosis/Procedures: Asthma flare
Diet: Regular
Activity: As tolerated
Driving Restrictions: As prior to admission
Bathing Restrictions: None
Referrals:
Demetrice Cabrera Haywood, DO [Active] - (3-4 weeks, PFTs)
Bryn Zayas, [Family Provider] - in less than 1 week
Prescriptions:
New
prednisone 10 mg tablet
10 mg PO DIRECTED Qty: 30 0RF
Rx Instructions:
40mg daily for 3 days and cut it down by 10mg every 3 days to finish the course
albuterol sulfate 90 mcg/actuation Hfa Aerosol Inhaler
1 puff inhalation R Q4HPRN PRN (Reason: SOB, cough, wheeze) Qty: 6.7 0RF
dextromethorphan-guaifenesin 10-100 mg/5 mL Syrup
5 ml PO Q6HPRN PRN (Reason: productive cough) Qty: 237 0RF
fluticasone propion-salmeterol [Advair Diskus] 250-50 mcg/dose blister with device
1 inh inhalation BID Qty: 60 0RF
Continued
valacyclovir 500 MG tablet
500 mg PO HS
dextroamphetamine-amphetamine 10 mg Tablet
10 mg PO BID
Patient Comments:
05/29/2023: LAST FILLED 04/01/23, 90 TABS FOR 30 DAYS FROM [facility]
ferrous sulfate 325 mg (65 mg iron) tablet
325 mg PO DAILY 30 Days Qty: 30 0RF
ascorbic acid (vitamin C) [Vitamin C] 1,000 mg Tablet
1,000 mg PO DAILY
guanfacine 1 mg Tablet
1 mg PO HS
escitalopram oxalate 5 mg Tablet
5 mg PO HS
pregabalin 150 mg Capsule
150 mg PO BID
Patient Comments:
05/29/2023: LAST FILLED 05/04/23, 60 TABS FOR 30 DAYS FROM [facility]
cholecalciferol (vitamin D3) 50 mcg (2,000 unit) Tablet
50 mcg PO DAILY
pantoprazole [Protonix] 40 mg tablet,delayed release (DR/EC)
40 mg PO BID
ipratropium-albuterol 0.5 mg-3 mg(2.5 mg base)/3 mL solution for nebulization
3 ml INHALATION R BID
Discontinued
doxycycline monohydrate 100 mg tablet
100 mg PO BID
Discharge Orders:
Discharge Patient (As Directed); Ordered 06/01/23
Ordered By: Bhaskar Tang
Discharge Date and Time
Discharge Date/Time: 06/01/23 12:46
Print Language: [place]
== END 2023-06-01 12:46 | disposition home or self-care (01) | DRG 202 ==
LOC: 3 WEST ACU 23:28
PROVIDERS: Clinical Nurse Specialist Family Health; Emergency Medicine; ADMITTING PHYSICIAN Hospitalist; ATTENDING PHYSICIAN Internal Medicine; CONSULT PHYSICIAN Internal Medicine; EMERGENCY PHYSICIAN Emergency Medicine; FAMILY PHYSICIAN Family Medicine
DX: J45.901 Unspecified asthma with (acute) exacerbation (principal); J18.9 Pneumonia, unspecified organism; I82.611 Acute embolism and thrombosis of superficial veins of right upper extremity; E03.9 Hypothyroidism, unspecified; U09.9 Post COVID-19 condition, unspecified; R30.0 Dysuria; I25.10 Atherosclerotic heart disease of native coronary artery without angina pectoris; E78.00 Pure hypercholesterolemia, unspecified; F41.9 Anxiety disorder, unspecified; F90.9 Attention-deficit hyperactivity disorder, unspecified type; L30.9 Dermatitis, unspecified; I10 Essential (primary) hypertension; K21.9 Gastro-esophageal reflux disease without esophagitis; K44.9 Diaphragmatic hernia without obstruction or gangrene; D50.9 Iron deficiency anemia, unspecified; F17.290 Nicotine dependence, other tobacco product, uncomplicated; F32.A Depression, unspecified; Z11.52 Encounter for screening for COVID-19; Z88.1 Allergy status to other antibiotic agents; Z88.0 Allergy status to penicillin; Z87.19 Personal history of other diseases of the digestive system
CPT/HCPCS: 71275; 80053; 81003; 81015; 83880; 84145; 85025; 86850; 86900; 86901; 87040; 87070; 87086; 87205; 87502; 87807; 87811; 93005; 93971; 94060; 94640; 96365; 96375; 99285; Q9967

== ENCOUNTER → 2023-06-05 06:36 | Day surgery (SDC) | payer OTHER, SELFPAY | LOC: GI 06:36 | PROVIDERS: ATTENDING PHYSICIAN Internal Medicine Gastroenterology; FAMILY PHYSICIAN Family Medicine | DX: K22.10 Ulcer of esophagus without bleeding (principal); K44.9 Diaphragmatic hernia without obstruction or gangrene; K22.89 Other specified disease of esophagus; K22.2 Esophageal obstruction; B37.81 Candidal esophagitis | CPT/HCPCS: 43239; 88305; 88312; 88342 ==

== ENCOUNTER → 2023-11-12 06:23 | Day surgery (SDC) | payer OTHER, SELFPAY | LOC: GI 06:23 | PROVIDERS: ATTENDING PHYSICIAN Internal Medicine Gastroenterology | DX: K22.10 Ulcer of esophagus without bleeding (principal); K44.9 Diaphragmatic hernia without obstruction or gangrene; K31.7 Polyp of stomach and duodenum | CPT/HCPCS: 43239; 88305; 88342 ==

== ENCOUNTER → 2024-02-20 06:31 | Day surgery (SDC) | payer OTHER, SELFPAY | LOC: GI 06:31 | PROVIDERS: ATTENDING PHYSICIAN Internal Medicine Gastroenterology | DX: K22.10 Ulcer of esophagus without bleeding (principal); K22.89 Other specified disease of esophagus; K44.9 Diaphragmatic hernia without obstruction or gangrene; K31.7 Polyp of stomach and duodenum | CPT/HCPCS: 43239; 88305 ==

== ENCOUNTER 2024-08-19 06:30 | Day surgery (SDC) | payer OTHER, SELFPAY | END 2024-08-19 11:48 | disposition home or self-care (01) | LOC: GI 06:30 | PROVIDERS: ATTENDING PHYSICIAN Internal Medicine Gastroenterology | DX: R12 Heartburn (principal); K44.9 Diaphragmatic hernia without obstruction or gangrene; K22.89 Other specified disease of esophagus; K22.10 Ulcer of esophagus without bleeding | CPT/HCPCS: 43239; 88305; 88312; 88342 ==